=== PATIENT | male | born 1955 | race American Indian/Alaskan Native ===

== ENCOUNTER 2016-07-28 18:31 | Inpatient (IN) | payer MEDICARE, OTHER ==
[2016-07-28] MEDS ORDERED: Clindamycin 300 MG in Sodium Chloride 0.9% 50 ML IVPB STA (20:25)
[2016-07-28 20:54] LABS: BASO # 0.1 K/uL (0.0-0.2); BASO % 0.8 % (0.0-2.0); EOS # 0.2 K/uL (0.0-0.7); EOS % 2.5 % (0.0-4.0); HEMATOCRIT 40.5 % (35.0-51.0); LYMPH # 2.2 K/uL (1.0-4.3); LYMPH % 34.8 % (20.0-40.0); MEAN CELL VOLUME 98.9 fL (80.0-94.0); MEAN CORPUSCULAR HEMOGLOBIN 33.9 pg (27.0-31.0); MEAN CORPUSCULAR HGB CONC 34.3 g/dL (33.0-37.0); MEAN PLATELET VOLUME 9.4 fL (7.2-11.7); MONO # 0.8 K/uL (0.0-0.8); RED CELL DISTRIBUTION WIDTH 12.8 % (11.5-14.5); WHITE BLOOD COUNT 6.3 K/uL (4.8-10.8)
[2016-07-28 21:05] LABS: CHLORIDE 107 mmol/L (98-107); SODIUM 138 mmol/L (132-148)
[2016-07-28 21:06] LABS: POTASSIUM 4.9 mmol/L (3.6-5.2)
[2016-07-28 21:07] LABS: GFR AFRICAN-AMERICAN > 60
[2016-07-28 21:08] LABS: ALB/GLOB RATIO 0.9 (1.0-2.1); ALKALINE PHOSPHATASE 94 U/L (38-126); ALT/SGPT 112 U/L (21-72); AST/SGOT 95 U/L (17-59); BILIRUBIN,TOTAL 0.8 mg/dL (0.2-1.3); BLOOD UREA NITROGEN 28 mg/dL (9-20); CARBON DIOXIDE 21 mmol/L (22-30); GLUCOSE,RANDOM 192 mg/dL (75-110); TOTAL PROTEIN 8.2 g/dL (6.3-8.3)
[2016-07-28 21:09] LABS: CALCIUM 9.2 mg/dl (8.6-10.4)
--- NOTE | 2016-07-28 21:35 | C.PDOC ---
History Of Present Illness Patient is a 60 year old male who was sent to ER by PCP Dr. Pereira for admission for osteomyelitis of the right 5th toe. Patient had a bone scan done on 07/19 that showed osteomyelitis of the right 5th toe. Denies fever, foot pain or any other physical complaints at this time. Time Seen by Provider: 07/28/16 19:58 Chief Complaint (Nursing): Abnormal Skin Integrity History Per: Patient History/Exam Limitations: no limitations Current Symptoms Are (Timing): Still Present Location Of Injury: Right: Foot (Osteomyelitis of 5th toe) Past Medical History Reviewed: Historical Data, Nursing Documentation, Vital Signs Vital Signs: Last Vital Signs Temp 97.7 F 07/29/16 01:15 Pulse 80 07/29/16 01:15 Resp 20 07/29/16 01:15 BP 158/84 H 07/29/16 01:15 Pulse Ox 98 07/29/16 01:15 - Medical History PMH: HTN Surgical History: No Surg Hx Family History: States: Unknown Family Hx - Social History Hx Alcohol Use: Yes Hx Substance Use: No - Immunization History Hx Tetanus Toxoid Vaccination: No Hx Influenza Vaccination: No Hx Pneumococcal Vaccination: No Review Of Systems Constitutional: Negative for: Fever, Chills Gastrointestinal: Negative for: Nausea, Vomiting, Abdominal Pain, Diarrhea Musculoskeletal: Positive for: Other (Right 5th toe osteomyelitis). Negative for: Foot Pain Neurological: Negative for: Weakness, Numbness Physical Exam - Physical Exam Appears: Well, Non-toxic Skin: Normal Color, Warm, Dry Head: Atraumatic, Normacephalic Oral Mucosa: Moist Extremity: Other (Open chronic ulcer on the dorsal aspect of right foot 5th toe. Old healing lesion on left toe) Pulses: Left Dorsalis Pedis: Normal, Right Dorsalis Pedis: Normal Neurological/Psych: Oriented x3, Normal Speech, Normal Cognition ED Course And Treatment - Laboratory Results Result Diagrams: 07/28/16 21:01 07/28/16 19:59 O2 Sat by Pulse Oximetry: 98 (Room air) Pulse Ox Interpretation: Normal Progress Note: Vancomycin IVPB and cleocin IV administered. Consulted with Dr. Pereira, will be admitted under Dr. Pereira. Disposition Counseled Patient/Family Regarding: Diagnosis, Need For Followup - Disposition Disposition: HOSPITALIZED Disposition Time: 03:33 Condition: STABLE - Clinical Impression Clinical Impression: Toe osteomyelitis, right - Scribe Statement The provider has reviewed the documentation as recorded by the Scribe Blaine Moore All medical record entries made by the Scribe were at my direction and personally dictated by me. I have reviewed the chart and agree that the record accurately reflects my personal performance of the history, physical exam, medical decision making, and the department course for this patient. I have also personally directed, reviewed, and agree with the discharge instructions and disposition.
[2016-07-29] MEDS ORDERED: Pneumococcal 23-Valent Vaccine IM ONE (01:29)
[2016-07-29] MEDS: Clindamycin 300 MG in Sodium Chloride 0.9% 50 ML IVPB SCH ×2 (05:09→12:06)
[2016-07-29] MEDS: (Novolog) Insulin Aspart, Recombinant 100 u/ml 10 ml vial SC SCH ×4 (09:01→22:04)
[2016-07-29] MEDS: (Novolog Mix 70/30) Insulin Aspart/Insulin Aspar 100 units/ml SC SCH ×3 (09:01→18:29)
[2016-07-29 09:08] LABS: CHLORIDE 103 mmol/L (98-107)
[2016-07-29 09:09] LABS: SODIUM 140 mmol/L (132-148)
[2016-07-29 09:10] LABS: POTASSIUM 4.4 mmol/L (3.6-5.2)
[2016-07-29 09:11] LABS: CHOLESTEROL 175 mg/dL (0-199)
[2016-07-29 09:12] LABS: ALB/GLOB RATIO 0.9 (1.0-2.1); ALKALINE PHOSPHATASE 96 U/L (38-126); ALT/SGPT 95 U/L (21-72); AST/SGOT 91 U/L (17-59); BILIRUBIN,TOTAL 0.8 mg/dL (0.2-1.3); BLOOD UREA NITROGEN 28 mg/dL (9-20); CARBON DIOXIDE 26 mmol/L (22-30); GFR AFRICAN-AMERICAN > 60; GLUCOSE,RANDOM 221 mg/dL (75-110); TOTAL PROTEIN 7.6 g/dL (6.3-8.3)
[2016-07-29 09:31] LABS: T4 11.9 ug/dL (5.5-11.0)
[2016-07-29 12:16] LABS: BASO % 0.9 % (0.0-2.0); EOS # 0.2 K/uL (0.0-0.7); EOS % 3.3 % (0.0-4.0); HEMATOCRIT 38.8 % (35.0-51.0); LYMPH # 1.4 K/uL (1.0-4.3); LYMPH % 24.9 % (20.0-40.0); MEAN CELL VOLUME 99.9 fL (80.0-94.0); MEAN CORPUSCULAR HEMOGLOBIN 33.6 pg (27.0-31.0); MEAN CORPUSCULAR HGB CONC 33.7 g/dL (33.0-37.0); MEAN PLATELET VOLUME 9.8 fL (7.2-11.7); MONO # 0.7 K/uL (0.0-0.8); MONO % 12.2 % (0.0-10.0); RED CELL DISTRIBUTION WIDTH 12.9 % (11.5-14.5); WHITE BLOOD COUNT 5.4 K/uL (4.8-10.8)
--- NOTE | 2016-07-29 12:49 | CP.PCM.CON ---
History of Present Illness - History of Present Illness History of Present Illness: 60 y/o male with pmhx of HTN seen at bedside with attending Dr. Garcia for right foot 5th toe osteomyelitis and left hallux wound. Patient states that he was sent by his PCP Dr. Pereira. Patient denies any pain to his feet. Patient appears in NAD and AAOx3. patient dressing remains c/d/i with minimal strikethrough on bandage. patient denies n/f/v/d/sob at this time. Review of Systems - Constitutional Constitutional: As Per HPI Past Patient History - Infectious Disease Hx of Infectious Diseases: None - Past Medical History & Family History Past Medical History?: Yes - Past Social History Smoking Status: Former Smoker - CARDIAC Hx Hypertension: Yes - ENDOCRINE/METABOLIC Hx Diabetes Mellitus Type 2: Yes - HEMATOLOGICAL/ONCOLOGICAL Hx Hepatitis C: Yes - MUSCULOSKELETAL/RHEUMATOLOGICAL Hx Falls: Yes - PSYCHIATRIC Hx Substance Use: No - SURGICAL HISTORY Hx Surgeries: Yes Other/Comment: lymph nodes removed from inguinal area. amputation to right toes done - ANESTHESIA Hx Anesthesia: Yes Hx Anesthesia Reactions: No Meds Allergies/Adverse Reactions: Allergies Allergy/AdvReac Type Severity Reaction Status Date / Time No Known Allergies Allergy Verified 07/28/16 18:56 - Medications Medications: Current Medications Amlodipine Besylate (Norvasc) 10 mg PO DAILY [facility] Last Admin: 07/29/16 09:06 Dose: 10 mg Aspirin (Aspirin Chewable) 81 mg PO DAILY [facility] Last Admin: 07/29/16 09:06 Dose: 81 mg Famotidine (Pepcid) 20 mg PO BID [facility] Last Admin: 07/29/16 09:06 Dose: 20 mg Furosemide (Lasix) 40 mg PO BID [facility] Last Admin: 07/29/16 09:07 Dose: 40 mg Heparin Sodium (Porcine) (Heparin) 5,000 units SC Q12 [facility] Last Admin: 07/29/16 09:06 Dose: 5,000 units Vancomycin HCl (Vancomycin 1gm In Normal Saline Addvantage) 250 mls @ 166.667 mls/hr IV STAT [facility] Last Admin: 07/28/16 21:32 Dose: 166.667 mls/hr Clindamycin Phosphate 300 mg/ (Sodium Chloride) 52 mls @ 100 mls/hr IVPB Q8H [facility] Last Admin: 07/29/16 12:06 Dose: 100 mls/hr Vancomycin HCl 1 gm/ Sodium (Chloride) 250 mls @ 166.7 mls/hr IVPB Q24H [facility] Influenza Virus Vaccine (Afluria) 45 mcg IM .ONCE ONE Stop: 07/31/16 14:01 Insulin Aspart (Novolog Mix 70/30 (70/30 Units/Ml)) 65 units SC ACBD [facility] Last Admin: 07/29/16 09:01 Dose: 65 units Insulin Aspart (Novolog) 0 unit SC ACHS [facility] PRN Reason: Protocol Last Admin: 07/29/16 12:04 Dose: 2 unit Metformin HCl (Glucophage) 500 mg PO BID [facility] Last Admin: 07/29/16 09:06 Dose: 500 mg Pneumococcal Polyvalent Vaccine (Pneumovax 23 Vaccine) 0.5 ml IM .ONCE ONE Stop: 07/31/16 14:01 Physical Exam - Constitutional Appears: Well, Non-toxic, No Acute Distress - Extremities Exam Additional comments: vasc: nonpalpable pedal pulses b/l, TG wnl, CFT < 3 sec to all digits, localized edema nad erythema to right 5th digit and left hallux neuro: grossly diminished derm: localized edema, localized erythema to right 5th digit and left hallux, open ulceration on right 5th digit measuring 1.5cm x 1 cm 0.1cm with fibrous base and macerated border, left hallux pre-ulcerative superficial lesion, no purulence, no malodor, no drainage, no fluctuance, no ascending cellulitis ortho: no pain on palpation of feet b/l - Neurological Exam Neurological exam: Alert, Oriented x3 - Psychiatric Exam Psychiatric exam: Normal Affect, Normal Mood Results - Vital Signs Recent Vital Signs: Last Vital Signs Temp 97.9 F 07/29/16 07:30 Pulse 78 07/29/16 07:30 Resp 20 07/29/16 07:30 BP 160/80 H 07/29/16 09:07 Pulse Ox 97 07/29/16 07:30 - Labs Result Diagrams: 07/29/16 12:19 07/29/16 08:48 Labs: Laboratory Results - last 24 hr 07/28/16 07/29/16 07/29/16 21:54 06:45 08:48 WBC RBC Hgb Hct MCV MCH MCHC RDW Plt Count MPV Neut % (Auto) Lymph % (Auto) [place] % (Auto) Eos % (Auto) Baso % (Auto) Neut # Lymph # [place] # Eos # Baso # APTT Sodium 140 Potassium 4.4 Chloride 103 Carbon Dioxide 26 Anion Gap 16 BUN 28 H Creatinine 1.1 Est GFR ( Amer) > 60 Est GFR (Non-Af Amer) > 60 POC Glucose (mg/dL) 165 H 189 H Random Glucose 221 H Calcium 9.0 Total Bilirubin 0.8 AST 91 H ALT 95 H Alkaline Phosphatase 96 Total Protein 7.6 Albumin 3.6 Globulin 4.0 H Albumin/Globulin Ratio 0.9 L Triglycerides 251 H Cholesterol 175 LDL Cholesterol Direct 115 HDL Cholesterol 42 Thyroxine (T4) 11.9 H Total T3 2.22 TSH 3rd Generation 2.30 07/29/16 07/29/16 07/29/16 08:48 11:17 12:19 WBC 5.4 RBC 3.89 L Hgb 13.1 Hct 38.8 MCV 99.9 H MCH 33.6 H MCHC 33.7 RDW 12.9 Plt Count 79 L MPV 9.8 Neut % (Auto) 58.7 Lymph % (Auto) 24.9 [place] % (Auto) 12.2 H Eos % (Auto) 3.3 Baso % (Auto) 0.9 Neut # 3.2 Lymph # 1.4 [place] # 0.7 Eos # 0.2 Baso # 0.0 APTT 34 Sodium Potassium Chloride Carbon Dioxide Anion Gap BUN Creatinine Est GFR ( Amer) Est GFR (Non-Af Amer) POC Glucose (mg/dL) 209 H Random Glucose Calcium Total Bilirubin AST ALT Alkaline Phosphatase Total Protein Albumin Globulin Albumin/Globulin Ratio Triglycerides Cholesterol LDL Cholesterol Direct HDL Cholesterol Thyroxine (T4) Total T3 TSH 3rd Generation Assessment & Plan - Assessment and Plan (Free Text) Assessment: 60 y/o male with pmhx of HTN seen at bedside for right foot 5th digit osteomyelitis with left hallux wound Plan: patient evaluated and seen at bedside with attending Dr. Garcia labs and vitals reviewed; afebrile, WBC 5.4 cont. IV abx applied DSD to both feet b/l wound cx: preliminary- no growth after 24 hours bone scan shows positive acute osseous process of right 5th digit Rx X rays of foot b/l Vascular consult placed- Dr. Thompson podiatry will continue to follow while patient remains in house
--- NOTE | 2016-07-29 13:12 | CP.PCM.CON ---
History of Present Illness - History of Present Illness History of Present Illness: INFECTIOUS DISEASE CONSULT; HPI; 60-year-old male with history of hypertension,DM-2,HLD who was sent to the ER on 07/28/[address] AMATO FOR ADMISSION FOR OSTEOMYELITIS OF THE RIGHT FIFTH TOE. PATIENT HAD A BONE SCAN DONE ON 07/19/16 WHICH SHOWED OSTEOMYELITIS OF THE RIGHT FIFTH TOE. PATIENT DENIES ANY FOOT PAIN OR ANY PHYSICAL COMPLAINTS AT THIS TIME. PATIENT DENIES ANY FEVER OR CHILLS. PATIENT WAS EMPIRICALLY STARTED ON iv VANCOMYCIN 1 G ONCE A DAY AND iv cLEOCIN 300 MG EVERY 8 HOURLY. INFECTIOUS DISEASE CONSULTATION REQUESTED BY PMD FOR RIGHT FOOT FIFTH TOE OSTEOMYELITIS. ALLERGIES; NKA. PMH: HTN,DM,HLD Surgical History: No Surg Hx Family History: States: Unknown Family Hx - Social History Hx Alcohol Use: Yes Hx Substance Use: No SMOKING -VE - Immunization History Hx Tetanus Toxoid Vaccination: No Hx Influenza Vaccination: No Hx Pneumococcal Vaccination: No Review of Systems - Constitutional Constitutional: absent: Chills, Fever - EENT Eyes: absent: Change in Vision Nose/Mouth/Throat: absent: Mouth Lesions - Cardiovascular Cardiovascular: absent: Chest Pain, Dyspnea - Respiratory Respiratory: absent: Cough - Gastrointestinal Gastrointestinal: absent: Abdominal Pain, Diarrhea - Genitourinary Genitourinary: absent: Dysuria, Urinary Hesitance - Neurological Neurological: Sensory Deficit. absent: Headaches, Tingling, Weakness - Hematologic/Lymphatic Hematologic: As Per HPI Past Patient History - Infectious Disease Hx of Infectious Diseases: None - Past Medical History & Family History Past Medical History?: Yes - Past Social History Smoking Status: Former Smoker - CARDIAC Hx Hypertension: Yes - ENDOCRINE/METABOLIC Hx Diabetes Mellitus Type 2: Yes - HEMATOLOGICAL/ONCOLOGICAL Hx Hepatitis C: Yes - MUSCULOSKELETAL/RHEUMATOLOGICAL Hx Falls: Yes - PSYCHIATRIC Hx Substance Use: No - SURGICAL HISTORY Hx Surgeries: Yes Other/Comment: lymph nodes removed from inguinal area. amputation to right toes done - ANESTHESIA Hx Anesthesia: Yes Hx Anesthesia Reactions: No Meds Allergies/Adverse Reactions: Allergies Allergy/AdvReac Type Severity Reaction Status Date / Time No Known Allergies Allergy Verified 07/28/16 18:56 - Medications Medications: Current Medications Amlodipine Besylate (Norvasc) 10 mg PO DAILY [facility] Last Admin: 07/29/16 09:06 Dose: 10 mg Aspirin (Aspirin Chewable) 81 mg PO DAILY [facility] Last Admin: 07/29/16 09:06 Dose: 81 mg Famotidine (Pepcid) 20 mg PO BID [facility] Last Admin: 07/29/16 09:06 Dose: 20 mg Furosemide (Lasix) 40 mg PO BID [facility] Last Admin: 07/29/16 09:07 Dose: 40 mg Heparin Sodium (Porcine) (Heparin) 5,000 units SC Q12 [facility] Last Admin: 07/29/16 09:06 Dose: 5,000 units Vancomycin HCl (Vancomycin 1gm In Normal Saline Addvantage) 250 mls @ 166.667 mls/hr IV STAT [facility] Last Admin: 07/28/16 21:32 Dose: 166.667 mls/hr Clindamycin Phosphate 300 mg/ (Sodium Chloride) 52 mls @ 100 mls/hr IVPB Q8H [facility] Last Admin: 07/29/16 12:06 Dose: 100 mls/hr Vancomycin HCl 1 gm/ Sodium (Chloride) 250 mls @ 166.7 mls/hr IVPB Q24H [facility] Influenza Virus Vaccine (Afluria) 45 mcg IM .ONCE ONE Stop: 07/31/16 14:01 Insulin Aspart (Novolog Mix 70/30 (70/30 Units/Ml)) 65 units SC ACBD [facility] Last Admin: 07/29/16 09:01 Dose: 65 units Insulin Aspart (Novolog) 0 unit SC ACHS [facility] PRN Reason: Protocol Last Admin: 07/29/16 12:04 Dose: 2 unit Metformin HCl (Glucophage) 500 mg PO BID [facility] Last Admin: 07/29/16 09:06 Dose: 500 mg Pneumococcal Polyvalent Vaccine (Pneumovax 23 Vaccine) 0.5 ml IM .ONCE ONE Stop: 07/31/16 14:01 Physical Exam - Head Exam Head Exam: NORMAL INSPECTION - Eye Exam Eye Exam: EOMI, PERRL - ENT Exam ENT Exam: Normal Oropharynx - Respiratory Exam Respiratory Exam: Clear to Auscultation Bilateral - Cardiovascular Exam Cardiovascular Exam: REGULAR RHYTHM, +S1, +S2 - GI/Abdominal Exam GI & Abdominal Exam: Normal Bowel Sounds, Soft. absent: Organomegaly - Extremities Exam Extremities exam: Positive for: pedal pulses present (PULSES WEAK.). Negative for: calf tenderness, pedal edema Additional comments: R 5th toe ulceration, edema, and erythema with skin masceration. L 1st toe with mild erythema - Neurological Exam Neurological exam: Alert, CN II-XII Intact, Oriented x3, Reflexes Normal - Psychiatric Exam Psychiatric exam: Normal Mood - Skin Skin Exam: Normal Color, Warm Results - Vital Signs Recent Vital Signs: Last Vital Signs Temp 97.9 F 07/29/16 07:30 Pulse 78 07/29/16 07:30 Resp 20 07/29/16 07:30 BP 160/80 H 07/29/16 09:07 Pulse Ox 97 07/29/16 07:30 - Labs Result Diagrams: 07/29/16 12:19 07/29/16 08:48 Labs: Laboratory Results - last 24 hr 07/28/16 07/29/16 07/29/16 21:54 06:45 08:48 WBC RBC Hgb Hct MCV MCH MCHC RDW Plt Count MPV Neut % (Auto) Lymph % (Auto) [place] % (Auto) Eos % (Auto) Baso % (Auto) Neut # Lymph # [place] # Eos # Baso # APTT Sodium 140 Potassium 4.4 Chloride 103 Carbon Dioxide 26 Anion Gap 16 BUN 28 H Creatinine 1.1 Est GFR ( Amer) > 60 Est GFR (Non-Af Amer) > 60 POC Glucose (mg/dL) 165 H 189 H Random Glucose 221 H Calcium 9.0 Total Bilirubin 0.8 AST 91 H ALT 95 H Alkaline Phosphatase 96 Total Protein 7.6 Albumin 3.6 Globulin 4.0 H Albumin/Globulin Ratio 0.9 L Triglycerides 251 H Cholesterol 175 LDL Cholesterol Direct 115 HDL Cholesterol 42 Thyroxine (T4) 11.9 H Total T3 2.22 TSH 3rd Generation 2.30 07/29/16 07/29/16 07/29/16 08:48 11:17 12:19 WBC 5.4 RBC 3.89 L Hgb 13.1 Hct 38.8 MCV 99.9 H MCH 33.6 H MCHC 33.7 RDW 12.9 Plt Count 79 L MPV 9.8 Neut % (Auto) 58.7 Lymph % (Auto) 24.9 [place] % (Auto) 12.2 H Eos % (Auto) 3.3 Baso % (Auto) 0.9 Neut # 3.2 Lymph # 1.4 [place] # 0.7 Eos # 0.2 Baso # 0.0 APTT 34 Sodium Potassium Chloride Carbon Dioxide Anion Gap BUN Creatinine Est GFR ( Amer) Est GFR (Non-Af Amer) POC Glucose (mg/dL) 209 H Random Glucose Calcium Total Bilirubin AST ALT Alkaline Phosphatase Total Protein Albumin Globulin Albumin/Globulin Ratio Triglycerides Cholesterol LDL Cholesterol Direct HDL Cholesterol Thyroxine (T4) Total T3 TSH 3rd Generation Assessment & Plan (1) Toe osteomyelitis, right Assessment and Plan: ESR,CRP WOUND CULTURE. START iv ZOSYN 3.375 EVERY 8 HOURLY 07/29 cONTINUE VANCOMYCIN, INCREASED DOSE TO 1 G EVERY 12 HOURLY.07/28/16 vANCO TROUGH LEVEL PRIOR TO FOURTH DOSE ON SUNDAY AND NOTIFY. kEEP VANCO LEVELS BETWEEN 10 AND 20. DC iv CLINDAMYCIN. PODIATRY ON BOARD. LOCAL WOUND CARE. FOR VASCULAR W/U Status: Acute (2) Hypertension Status: Chronic (3) Thrombocytopenia Assessment and Plan: FOLLOW-UP REPEAT cbc WITH DIFFERENTIAL IN A.M. etiology of thrombocytopenia not clear- probable sepsis versus liver disease versus immune Status: Acute
[2016-07-29] MEDS: Vancomycin 1 gm/NS 200 ml 1 GM/200 ML BAG IVPB SCH (13:59)
--- NOTE | 2016-07-29 14:21 | RAD ---
PROCEDURE: Bilateral Feet Radiographs. HISTORY: r/o OM left hallux COMPARISON: Three-phase bone scan performed 07/19/16 FINDINGS: BONES: Right Foot: No acute displaced fracture.Prominent sclerotic region involving the talus. Left Foot: No acute displaced fracture. Deformity of the ankle joint with hardware present. Resection of the distal 5th metatarsal. JOINTS: Right Foot: No dislocation. Left Foot: No dislocation. SOFT TISSUES: Right Foot: Soft tissue swelling or cellulitis, laterally. Dense vascular calcifications. Left Foot: Soft tissue swelling/cellulitis most prominent laterally. Dense vascular calcifications. OTHER FINDINGS: None. IMPRESSION: Prominent sclerotic region involving the right talus. Extensive degenerative changes bilaterally. Postoperative changes of the left foot and ankle. Bilateral soft tissue swelling/cellulitis most prominent laterally. Please note that MRI without and with IV contrast is most sensitive in detection of acute osteomyelitis.
[2016-07-29] MEDS: hydrALAZINE 12.5 mg Tab PO SCH ×2 (14:54→22:48)
[2016-07-29] MEDS: Piperacillin/Tazobact 3.375 GM in Sodium Chloride 100 ML IVPB SCH (15:31)
--- NOTE | 2016-07-29 18:43 | CP.PCM.CON ---
<Austin Fischer - Last Filed: 07/29/16 18:26> History of Present Illness - History of Present Illness History of Present Illness: Vascular Surgery Consult Re: R 5th digit wound, L hallux wound, assess vascular status of bilateral lower extremities HPI: 60M sent to ED by Dr. Pereira for osteomyelitis of the right 5th toe found on a bone scan from 07/19/16. Pt has poor sensation in his feet 2/2 diabetic neuropathy. Pt currently without complaint. Denies F/C, N/V/D, foot pain. We were consulted for evaluation of blood flow to the b/l LE by podiatry. L hallux wound also noted. PMH: DM, HTN, HLD PSH: L ankle/L 5th toe SH: Former tobacco smoker (quit 10+ years ago), Rare EtOH, no drug use All: NKDA Meds: See MAR Review of Systems - Review of Systems All systems: reviewed and no additional remarkable complaints except (as per HPI ) Past Patient History - Infectious Disease Hx of Infectious Diseases: None - Past Medical History & Family History Past Medical History?: Yes - Past Social History Smoking Status: Former Smoker - CARDIAC Hx Hypertension: Yes - ENDOCRINE/METABOLIC Hx Diabetes Mellitus Type 2: Yes - HEMATOLOGICAL/ONCOLOGICAL Hx Hepatitis C: Yes - MUSCULOSKELETAL/RHEUMATOLOGICAL Hx Falls: Yes - PSYCHIATRIC Hx Substance Use: No - SURGICAL HISTORY Hx Surgeries: Yes Other/Comment: lymph nodes removed from inguinal area. amputation to right toes done - ANESTHESIA Hx Anesthesia: Yes Hx Anesthesia Reactions: No Meds Allergies/Adverse Reactions: Allergies Allergy/AdvReac Type Severity Reaction Status Date / Time No Known Allergies Allergy Verified 07/28/16 18:56 - Medications Medications: Current Medications Amlodipine Besylate (Norvasc) 10 mg PO DAILY [facility] Last Admin: 07/29/16 09:06 Dose: 10 mg Aspirin (Aspirin Chewable) 81 mg PO DAILY [facility] Last Admin: 07/29/16 09:06 Dose: 81 mg Famotidine (Pepcid) 20 mg PO BID [facility] Last Admin: 07/29/16 09:06 Dose: 20 mg Furosemide (Lasix) 40 mg PO BID [facility] Last Admin: 07/29/16 09:07 Dose: 40 mg Heparin Sodium (Porcine) (Heparin) 5,000 units SC Q12 [facility] Last Admin: 07/29/16 09:06 Dose: 5,000 units Hydralazine HCl (Apresoline) 12.5 mg PO Q8 [facility] Last Admin: 07/29/16 14:54 Dose: 12.5 mg Piperacillin Sod/Tazobactam (Sod 3.375 gm/ Sodium Chloride) 100 mls @ 200 mls/ hr IVPB Q8H [facility] Last Admin: 07/29/16 15:31 Dose: 200 mls/hr Vancomycin/Sodium Chloride (Vancocin) 1 gm in 200 mls @ 133.333 mls/hr IVPB Q12H [facility] Stop: 08/03/16 14:01 Last Admin: 07/29/16 13:59 Dose: 133.333 mls/hr Influenza Virus Vaccine (Afluria) 45 mcg IM .ONCE ONE Stop: 07/31/16 14:01 Insulin Aspart (Novolog Mix 70/30 (70/30 Units/Ml)) 65 units SC ACBD [facility] Last Admin: 07/29/16 09:01 Dose: 65 units Insulin Aspart (Novolog) 0 unit SC ACHS [facility] PRN Reason: Protocol Last Admin: 07/29/16 12:04 Dose: 2 unit Losartan Potassium (Cozaar) 50 mg PO DAILY [facility] Last Admin: 07/29/16 14:54 Dose: 50 mg Metformin HCl (Glucophage) 500 mg PO BID [facility] Last Admin: 07/29/16 09:06 Dose: 500 mg Pneumococcal Polyvalent Vaccine (Pneumovax 23 Vaccine) 0.5 ml IM .ONCE ONE Stop: 07/31/16 14:01 Physical Exam - Constitutional Appears: Non-toxic, No Acute Distress - Head Exam Head Exam: ATRAUMATIC, NORMOCEPHALIC - Eye Exam Eye Exam: EOMI. absent: Scleral icterus - ENT Exam ENT Exam: Mucous Membranes Moist Additional comments: trachea midline - Respiratory Exam Respiratory Exam: NORMAL BREATHING PATTERN. absent: Respiratory Distress - Cardiovascular Exam Cardiovascular Exam: RRR, +S1, +S2 - GI/Abdominal Exam GI & Abdominal Exam: Soft. absent: Distended, Tenderness - Rectal Exam Rectal Exam: Deferred - Extremities Exam Extremities exam: Positive for: pedal edema (trace b/l). Negative for: calf tenderness, pedal pulses present (b/l nonpalpable PT and DP) Additional comments: difficult to palpate popliteal pulse b/l R 5th toe ulceration, edema, and erythema L 1st toe with mild erythema - Neurological Exam Neurological exam: Alert, Oriented x3 Additional comments: decreased sensation in b/l LE - Psychiatric Exam Psychiatric exam: Normal Affect, Normal Mood - Skin Skin Exam: Dry, Warm Results - Vital Signs Recent Vital Signs: Last Vital Signs Temp 97.6 F 07/29/16 15:43 Pulse 76 07/29/16 15:43 Resp 20 07/29/16 15:43 BP 169/90 H 07/29/16 15:43 Pulse Ox 98 07/29/16 15:43 - Labs Result Diagrams: 07/29/16 12:19 07/29/16 08:48 Labs: Laboratory Results - last 24 hr 07/28/16 07/29/16 07/29/16 21:54 06:45 08:48 WBC RBC Hgb Hct MCV MCH MCHC RDW Plt Count MPV Neut % (Auto) Lymph % (Auto) Ballard % (Auto) Eos % (Auto) Baso % (Auto) Neut # Lymph # Ballard # Eos # Baso # APTT Sodium 140 Potassium 4.4 Chloride 103 Carbon Dioxide 26 Anion Gap 16 BUN 28 H Creatinine 1.1 Est GFR ( Amer) > 60 Est GFR (Non-Af Amer) > 60 POC Glucose (mg/dL) 165 H 189 H Random Glucose 221 H Calcium 9.0 Total Bilirubin 0.8 AST 91 H ALT 95 H Alkaline Phosphatase 96 Total Protein 7.6 Albumin 3.6 Globulin 4.0 H Albumin/Globulin Ratio 0.9 L Triglycerides 251 H Cholesterol 175 LDL Cholesterol Direct 115 HDL Cholesterol 42 Thyroxine (T4) 11.9 H Total T3 2.22 TSH 3rd Generation 2.30 07/29/16 07/29/16 07/29/16 08:48 11:17 12:19 WBC 5.4 RBC 3.89 L Hgb 13.1 Hct 38.8 MCV 99.9 H MCH 33.6 H MCHC 33.7 RDW 12.9 Plt Count 79 L MPV 9.8 Neut % (Auto) 58.7 Lymph % (Auto) 24.9 Ballard % (Auto) 12.2 H Eos % (Auto) 3.3 Baso % (Auto) 0.9 Neut # 3.2 Lymph # 1.4 Ballard # 0.7 Eos # 0.2 Baso # 0.0 APTT 34 Sodium Potassium Chloride Carbon Dioxide Anion Gap BUN Creatinine Est GFR ( Amer) Est GFR (Non-Af Amer) POC Glucose (mg/dL) 209 H Random Glucose Calcium Total Bilirubin AST ALT Alkaline Phosphatase Total Protein Albumin Globulin Albumin/Globulin Ratio Triglycerides Cholesterol LDL Cholesterol Direct HDL Cholesterol Thyroxine (T4) Total T3 TSH 3rd Generation 07/29/16 15:31 WBC RBC Hgb Hct MCV MCH MCHC RDW Plt Count MPV Neut % (Auto) Lymph % (Auto) Ballard % (Auto) Eos % (Auto) Baso % (Auto) Neut # Lymph # Ballard # Eos # Baso # APTT Sodium Potassium Chloride Carbon Dioxide Anion Gap BUN Creatinine Est GFR ( Amer) Est GFR (Non-Af Amer) POC Glucose (mg/dL) 168 H Random Glucose Calcium Total Bilirubin AST ALT Alkaline Phosphatase Total Protein Albumin Globulin Albumin/Globulin Ratio Triglycerides Cholesterol LDL Cholesterol Direct HDL Cholesterol Thyroxine (T4) Total T3 TSH 3rd Generation - Imaging and Cardiology B/L LE x-ray Status: Image reviewed by me Assessment & Plan - Assessment and Plan (Free Text) Assessment: 60M with R foot 5th toe osteomyelitis and left hallux wound with PAD Plan: CTA abd/pelvis with B/L LE runoff IV ABX per ID IVF Dr. Bernard to see. Seen with Dr. Jurado, covering for Dr. Bernard D/W Dr. Adrien Fischer PGY3 <Kenneth Jurado - Last Filed: 08/02/16 20:35> Meds - Medications Medications: Current Medications Amlodipine Besylate (Norvasc) 10 mg PO DAILY [facility] Last Admin: 08/02/16 11:55 Dose: Not Given Aspirin (Aspirin Chewable) 81 mg PO DAILY [facility] Last Admin: 08/02/16 11:56 Dose: Not Given Atenolol (Tenormin) 12.5 mg PO DAILY [facility] Last Admin: 08/02/16 11:54 Dose: 12.5 mg Clopidogrel Bisulfate (Plavix) 75 mg PO DAILY [facility] Famotidine (Pepcid) 20 mg PO BID [facility] Last Admin: 08/02/16 17:20 Dose: 20 mg Furosemide (Lasix) 40 mg PO BID [facility] Last Admin: 08/02/16 17:20 Dose: 40 mg Heparin Sodium (Porcine) (Heparin) 5,000 units SC Q12 [facility] Last Admin: 08/01/16 22:26 Dose: 5,000 units Hydralazine HCl (Apresoline) 25 mg PO Q8 [facility] Last Admin: 08/02/16 13:21 Dose: Not Given Piperacillin Sod/Tazobactam (Sod 3.375 gm/ Sodium Chloride) 100 mls @ 200 mls/ hr IVPB Q8H [facility] Last Admin: 08/02/16 14:51 Dose: Not Given Dextrose/Sodium Chloride (Dextrose 5%/0.45% Ns 1000 Ml) 1,000 mls @ 50 mls/hr IV .Q20H [facility] Stop: 08/03/16 08:14 Last Admin: 08/02/16 12:06 Dose: 50 mls/hr Dextrose/Sodium Chloride (Dextrose 5%/0.45% Ns 1000 Ml) 1,000 mls @ 100 mls/hr IV .Q10H [facility] Last Admin: 08/02/16 17:24 Dose: 100 mls/hr Insulin Detemir (Levemir) 60 unit SC HS [facility] Last Admin: 08/01/16 21:57 Dose: Not Given Insulin Human Regular (Novolin R) 20 unit SC TIDCC [facility] Insulin Human Regular (Novolin R) 0 unit SC ACHS [facility] PRN Reason: Protocol Losartan Potassium (Cozaar) 50 mg PO DAILY [facility] Last Admin: 08/02/16 11:54 Dose: 50 mg Results - Vital Signs Recent Vital Signs: Last Vital Signs Temp 97.3 F L 08/02/16 16:55 Pulse 66 08/02/16 16:55 Resp 18 08/02/16 16:55 BP 124/78 08/02/16 17:20 Pulse Ox 97 08/02/16 16:55 - Labs Result Diagrams: 08/01/16 06:47 08/02/16 06:59 Labs: Laboratory Results - last 24 hr 07/29/16 08/01/16 08/02/16 08:48 21:49 05:47 Sodium Potassium Chloride Carbon Dioxide Anion Gap BUN Creatinine Est GFR ( Amer) Est GFR (Non-Af Amer) POC Glucose (mg/dL) 137 H 135 H Random Glucose Calcium HCV RNA Qual (TMA) Detected H 08/02/16 08/02/16 08/02/16 06:59 11:57 16:43 Sodium 140 Potassium 4.1 Chloride 104 Carbon Dioxide 24 Anion Gap 16 BUN 22 H Creatinine 1.1 Est GFR ( Amer) > 60 Est GFR (Non-Af Amer) > 60 POC Glucose (mg/dL) 118 H 174 H Random Glucose 122 H Calcium 8.4 L HCV RNA Qual (TMA) Attending/Attestation - Attestation I have personally seen and examined this patient.: Yes I have fully participated in the care of the patient.: Yes I have reviewed all pertinent clinical information: Yes Notes (Text): 08/02/16 20:33 Pt was seen and examined at bedside on 07/29/16 Agree with above note and assessment Pt with Osteomyelitis of Right foot and PAD of Lower extremity C.w IV antibiotics CT Angiogram of LE Plan d.w pt and primary team in detail
[2016-07-29] MEDS ORDERED: Sodium Chloride 0.9% 1,000 ML IV SCH (19:00)
[2016-07-30] MEDS: Piperacillin/Tazobact 3.375 GM in Sodium Chloride 100 ML IVPB SCH ×4 (00:23→23:23)
[2016-07-30] MEDS: Vancomycin 1 gm/NS 200 ml 1 GM/200 ML BAG IVPB SCH ×2 (02:24→13:27)
[2016-07-30] MEDS: hydrALAZINE 12.5 mg Tab PO SCH ×3 (06:23→22:08)
[2016-07-30] MEDS: (Novolog Mix 70/30) Insulin Aspart/Insulin Aspar 100 units/ml SC SCH ×2 (08:05→17:48)
[2016-07-30] MEDS: (Novolog) Insulin Aspart, Recombinant 100 u/ml 10 ml vial SC SCH ×4 (08:05→22:03)
[2016-07-30] MEDS: Sodium Chloride 0.9% 1,000 ML IV SCH ×2 (08:08→22:22)
[2016-07-30] MEDS ORDERED: Iodixanol 320 mg/ml 150 ml Bottle IV ONE (08:35)
--- NOTE | 2016-07-30 09:29 | CP.PCM.PN ---
Subjective - Date & Time of Evaluation Date of Evaluation: 07/30/16 Time of Evaluation: 07:25 - Subjective Subjective: Vascular Surgery Pt S&E, NAEO. No complaints at this time. Awaiting vascular study. Objective - Vital Signs/Intake and Output Vital Signs (last 24 hours): Temp Pulse Resp BP Pulse Ox 98.0 F 91 H 20 165/74 H 95 07/30/16 08:01 07/30/16 08:01 07/30/16 08:01 07/30/16 08:01 07/30/16 08:01 Intake and Output: 07/30/16 07/30/16 06:59 18:59 Intake Total 620 Balance 620 - Medications Medications: Current Medications Amlodipine Besylate (Norvasc) 10 mg PO DAILY [facility] Last Admin: 07/29/16 09:06 Dose: 10 mg Aspirin (Aspirin Chewable) 81 mg PO DAILY [facility] Last Admin: 07/29/16 09:06 Dose: 81 mg Famotidine (Pepcid) 20 mg PO BID [facility] Last Admin: 07/29/16 18:28 Dose: 20 mg Furosemide (Lasix) 40 mg PO BID [facility] Last Admin: 07/29/16 18:28 Dose: 40 mg Heparin Sodium (Porcine) (Heparin) 5,000 units SC Q12 [facility] Last Admin: 07/29/16 22:48 Dose: 5,000 units Hydralazine HCl (Apresoline) 12.5 mg PO Q8 [facility] Last Admin: 07/30/16 06:23 Dose: 12.5 mg Piperacillin Sod/Tazobactam (Sod 3.375 gm/ Sodium Chloride) 100 mls @ 200 mls/ hr IVPB Q8H [facility] Last Admin: 07/30/16 06:33 Dose: 200 mls/hr Vancomycin/Sodium Chloride (Vancocin) 1 gm in 200 mls @ 133.333 mls/hr IVPB Q12H [facility] Stop: 08/03/16 14:01 Last Admin: 07/30/16 02:24 Dose: 133.333 mls/hr Sodium Chloride (Sodium Chloride 0.9%) 1,000 mls @ 75 mls/hr IV .[id number] [facility] Last Admin: 07/30/16 08:08 Dose: 75 mls/hr Influenza Virus Vaccine (Afluria) 45 mcg IM .ONCE ONE Stop: 07/31/16 14:01 Insulin Aspart (Novolog Mix 70/30 (70/30 Units/Ml)) 65 units SC ACBD [facility] Last Admin: 07/30/16 08:05 Dose: 65 units Insulin Aspart (Novolog) 0 unit SC ACHS [facility] PRN Reason: Protocol Last Admin: 07/30/16 08:05 Dose: 5 unit Losartan Potassium (Cozaar) 50 mg PO DAILY [facility] Last Admin: 07/29/16 14:54 Dose: 50 mg Metformin HCl (Glucophage) 500 mg PO BID [facility] Last Admin: 07/29/16 18:28 Dose: 500 mg Pneumococcal Polyvalent Vaccine (Pneumovax 23 Vaccine) 0.5 ml IM .ONCE ONE Stop: 07/31/16 14:01 - Labs Labs: 07/29/16 12:19 07/29/16 08:48 PT 11.0 SECONDS (9.7-12.2) 07/28/16 21:12 INR 1.0 07/28/16 21:12 APTT 34 SECONDS (21-34) 07/29/16 08:48 - Constitutional Appears: Non-toxic, No Acute Distress - Head Exam Head Exam: ATRAUMATIC, NORMOCEPHALIC - Respiratory Exam Respiratory Exam: NORMAL BREATHING PATTERN. absent: Respiratory Distress - GI/Abdominal Exam GI & Abdominal Exam: Soft. absent: Distended, Tenderness - Extremities Exam Extremities Exam: Pedal Edema (trace) Additional comments: dressings C/D/I - Neurological Exam Neurological Exam: Alert, Awake - Skin Skin Exam: Dry, Warm Assessment and Plan - Assessment and Plan (Free Text) Assessment: 60M with R foot 5th toe osteomyelitis and left hallux wound with PAD Plan: Follow up CTA Cont abx IVF for hydration before contrast D/W Dr. Jurado covering for Dr. Joana Fischer PGY3
[2016-07-30 11:33] LABS: HEMATOCRIT 39.4 % (35.0-51.0); MEAN CELL VOLUME 99.4 fL (80.0-94.0); MEAN CORPUSCULAR HGB CONC 34.2 g/dL (33.0-37.0); MEAN PLATELET VOLUME 9.7 fL (7.2-11.7); RED CELL DISTRIBUTION WIDTH 12.7 % (11.5-14.5); WHITE BLOOD COUNT 4.4 K/uL (4.8-10.8)
[2016-07-30 11:34] LABS: CHLORIDE 103 mmol/L (98-107)
[2016-07-30 11:35] LABS: POTASSIUM 4.1 mmol/L (3.6-5.2); SODIUM 137 mmol/L (132-148)
[2016-07-30 11:37] LABS: CARBON DIOXIDE 22 mmol/L (22-30); GFR AFRICAN-AMERICAN > 60
[2016-07-30 11:38] LABS: BLOOD UREA NITROGEN 35 mg/dL (9-20); CALCIUM 8.4 mg/dl (8.6-10.4); GLUCOSE,RANDOM 279 mg/dL (75-110)
--- NOTE | 2016-07-30 12:24 | CP.PCM.PN ---
Subjective - Date & Time of Evaluation Date of Evaluation: 07/30/16 Time of Evaluation: 12:21 - Subjective Subjective: 60 y/o male with pmhx of HTN seen at bedside for right foot 5th toe osteomyelitis and left hallux wound. Patient states that he was sent by his PCP Dr. Pereira. Patient denies any pain to his feet. Patient appears in NAD and AAOx3. patient dressing remains c/d/i with minimal strikethrough on bandage. patient denies n/f/v/d/sob at this time. Objective - Vital Signs/Intake and Output Vital Signs (last 24 hours): Temp Pulse Resp BP Pulse Ox 98.0 F 91 H 20 165/74 H 95 07/30/16 08:01 07/30/16 08:01 07/30/16 08:01 07/30/16 08:01 07/30/16 08:01 Intake and Output: 07/30/16 07/30/16 06:59 18:59 Intake Total 620 Balance 620 - Medications Medications: Current Medications Amlodipine Besylate (Norvasc) 10 mg PO DAILY [facility] Last Admin: 07/30/16 10:27 Dose: 10 mg Aspirin (Aspirin Chewable) 81 mg PO DAILY [facility] Last Admin: 07/30/16 10:27 Dose: 81 mg Famotidine (Pepcid) 20 mg PO BID [facility] Last Admin: 07/30/16 10:27 Dose: 20 mg Furosemide (Lasix) 40 mg PO BID [facility] Last Admin: 07/30/16 10:28 Dose: Not Given Heparin Sodium (Porcine) (Heparin) 5,000 units SC Q12 [facility] Last Admin: 07/30/16 10:28 Dose: 5,000 units Hydralazine HCl (Apresoline) 12.5 mg PO Q8 [facility] Last Admin: 07/30/16 06:23 Dose: 12.5 mg Piperacillin Sod/Tazobactam (Sod 3.375 gm/ Sodium Chloride) 100 mls @ 200 mls/ hr IVPB Q8H [facility] Last Admin: 07/30/16 06:33 Dose: 200 mls/hr Vancomycin/Sodium Chloride (Vancocin) 1 gm in 200 mls @ 133.333 mls/hr IVPB Q12H [facility] Stop: 08/03/16 14:01 Last Admin: 07/30/16 02:24 Dose: 133.333 mls/hr Sodium Chloride (Sodium Chloride 0.9%) 1,000 mls @ 75 mls/hr IV .[id number] [facility] Last Admin: 07/30/16 08:08 Dose: 75 mls/hr Influenza Virus Vaccine (Afluria) 45 mcg IM .ONCE ONE Stop: 07/31/16 14:01 Insulin Aspart (Novolog Mix 70/30 (70/30 Units/Ml)) 65 units SC ACBD [facility] Last Admin: 07/30/16 08:05 Dose: 65 units Insulin Aspart (Novolog) 0 unit SC ACHS [facility] PRN Reason: Protocol Last Admin: 07/30/16 12:10 Dose: 4 unit Losartan Potassium (Cozaar) 50 mg PO DAILY [facility] Last Admin: 07/30/16 10:27 Dose: 50 mg Metformin HCl (Glucophage) 500 mg PO BID [facility] Last Admin: 07/30/16 10:28 Dose: 500 mg Pneumococcal Polyvalent Vaccine (Pneumovax 23 Vaccine) 0.5 ml IM .ONCE ONE Stop: 07/31/16 14:01 - Labs Labs: 07/30/16 11:22 07/30/16 11:22 PT 11.0 SECONDS (9.7-12.2) 07/28/16 21:12 INR 1.0 07/28/16 21:12 APTT 34 SECONDS (21-34) 07/29/16 08:48 - Constitutional Appears: Well, Non-toxic, No Acute Distress - Extremities Exam Additional comments: vasc: nonpalpable pedal pulses b/l, TG wnl, CFT < 3 sec to all digits, localized edema nad erythema to right 5th digit and left hallux neuro: grossly diminished derm: localized edema, localized erythema to right 5th digit and left hallux, open ulceration on right 5th digit measuring 1.5cm x 1 cm 0.1cm with fibrous base and macerated border, left hallux pre-ulcerative superficial lesion, no purulence, no malodor, no drainage, no fluctuance, no ascending cellulitis ortho: no pain on palpation of feet b/l - Neurological Exam Neurological Exam: Alert, Awake, Oriented x3 - Psychiatric Exam Psychiatric exam: Normal Affect, Normal Mood Assessment and Plan - Assessment and Plan (Free Text) Assessment: 60 y/o male with pmhx of HTN seen at bedside for right foot 5th digit osteomyelitis with left hallux pre-ulcerative lesion Plan: patient evaluated and seen at bedside discussed in detail with attending Dr. Garcia labs and vitals reviewed; afebrile, WBC 4.4 cont. IV abx (vanco and zosyn) applied DSD to both feet b/l wound cx: preliminary- no growth after 24 hours bone scan shows positive acute osseous process of right 5th digit x rays foot b/l show extensive degenerative changes b/l, bilateral soft tissue swelling/cellulitis - recommend MRI to rule out acute OM Vascular consult appreciated- will f/u CTA podiatry will continue to follow while patient remains in house
--- NOTE | 2016-07-30 14:33 | PN ---
DATE: 07/30/2016 SUBJECTIVE: Today, the patient is alert and awake and denies any pain but still complains of some di scomfort to the lower extremity ____ . Denies any chest pain or palpitations. PHYSICAL EXAMINATION: VITAL SIGNS: The patient has a blood pressure 165/74, pulse 91, respirations 20 and temperature 98. HEAD: Normocephalic. NECK: Supple. No JVD. LUNGS: Clear. HEART: Regular rate and rhythm. ABDOMEN: Soft, obese, nontender, No palpable mass. EXTREMITIES: There is an ulcer on the left big toe at the site of the metatarsophalangeal joint, an d there is also at the right 5th toe, the dorsal aspect of the toe, which is dry. LABORATORY DATA: The WBC is 4.4, hemoglobin 13.7, hematocrit 39.4, and platelet is 81. Chemistry: ____ is the sodium, potassium is 4.1, chloride 103, bicarb is 22, BUN is 35, creatinine is 1.4, ____ , blood glucose is ranging from 309 and 378, 318. PLAN: A consult is made for ____ and vascular and also a CAT scan of the ulcer is ordered, so are go ing to continue the current medications and consider physical therapy. Dr. Layne will be consulted f or endocrinology because of diabetes. Lars Pereira MD cc: [id number] TT: 07/30/2016 14:32:33 Confirmation # [id number] Dictation # [id number]
[2016-07-31] MEDS: Vancomycin 1 gm/NS 200 ml 1 GM/200 ML BAG IVPB SCH ×3 (02:00→20:58)
[2016-07-31] MEDS: hydrALAZINE 12.5 mg Tab PO SCH ×3 (05:38→22:25)
--- NOTE | 2016-07-31 07:04 | HP ---
This is a 60-year-old male with history of diabetes, hypertension and history of Charcot joint and ch ronic ulcer of the foot. The patient came to my office. The patient was complaining of some ulcer t o the left foot, to the left big toe and also to the ____ small toes, left. The patient had an x-ray and a bone scan, which has revealed that the patient has osteomyelitis. The patient was advised to go to the hospital for admission and receive antibiotic therapy, but the patient has refused for the past 2 weeks. Last night, the patient decided to come in to the Emergency Room because of discomfort of the foot and also the wound was worsening, so the patient was therefore admitted. ALLERGIES: The patient had no known allergies. PAST MEDICAL HISTORY: History of diabetes, hypertension, peripheral arterial disease and neuropathy. The patient had surgery to the left foot for Charcot joint. SOCIAL HISTORY: The patient used to use drugs IV, but the patient has stopped for many, many years. No smoking or alcohol abuse, but however, the patient had been only drinking socially. Also, the pa tient had children, but he lives alone. FAMILY HISTORY: No inherited disease and father . REVIEW OF SYSTEM: RESPIRATORY: The patient denies any shortness of breath. CARDIOVASCULAR: The patient denied any chest pain. GASTROINTESTINAL: Complains of constipation. GENITOURINARY: Increase of urinary frequency. The patient on Lasix. NEUROLOGIC: There is numbness to his lower plantar aspect of both feet. PHYSICAL EXAMINATION: GENERAL: The patient is alert, awake, and oriented x 3. The blood pressure was lying 202/90; last blood pressure done by the nurse was 198/70 and pulse was in the range of 80. NECK: Supple, no JVD. The patient is obese. LUNGS: Clear. HEART: Regular rate and rhythm. No murmur noted. ABDOMEN: Soft, obese, no palpable mass. EXTREMITIES: There was no edema and also the patient has an ulcer left big toe and also to the ____ fifth toe. The patient had x-rays of the feet and also a bone scan was done that has shown the patient has osteo myelitis of both toes, the fifth and the first. IMPRESSION: 1. Osteomyelitis. 2. Uncontrolled hypertension. 3. Diabetes. 4. Neuropathy. 5. Unsteady gait. 6. Charcot joint. PLAN: The patient will have a consult with Dr. Garcia who is power transformer repair supervisor, Dr. Gamez who is ID and _ ___. So the patient will be put on medications including antibiotic, which is Zosyn and vancomycin. In fact, the patient also had some blood tests done and has shown that sodium 138 on admission and p otassium 4.9, chloride 107, bicarbonate 21, BUN ____, creatinine 1, and AST is 95, ALT 112, and album in 4.4. The hemoglobin and hematocrit ____. Chemistry shows sodium 140, potassium 4.4, chloride 103 , bicarbonate 26, BUN 28, creatinine 1.1. So the patient has history of hepatitis C. We are going t o order hepatitis C viral load. Lars Pereira MD cc: [id number] TT: 07/29/2016 19:01:50 fl 07/29/2016 23:27:21
--- NOTE | 2016-07-31 08:14 | CP.PCM.PN ---
Subjective - Date & Time of Evaluation Date of Evaluation: 07/31/16 Time of Evaluation: 08:12 - Subjective Subjective: Surgery: Dr. Bernard Patient states he feels well today. He denies pain to either foot. He reports dressing care by podiatry. He complains of some mild aching in the legs overall. Objective - Vital Signs/Intake and Output Vital Signs (last 24 hours): Temp Pulse Resp BP Pulse Ox 97.6 F 78 18 141/70 98 07/30/16 23:34 07/30/16 23:34 07/30/16 23:34 07/30/16 23:34 07/30/16 23:34 Intake and Output: 07/31/16 07/31/16 06:59 18:59 Intake Total 520 Balance 520 - Medications Medications: Current Medications Amlodipine Besylate (Norvasc) 10 mg PO DAILY COUNT [facility]CLUDES [facility] Last Admin: 07/30/16 10:27 Dose: 10 mg Aspirin (Aspirin Chewable) 81 mg PO DAILY [facility] Last Admin: 07/30/16 10:27 Dose: 81 mg Famotidine (Pepcid) 20 mg PO BID COUNT [facility]CLUD[facility] Last Admin: 07/30/16 17:47 Dose: 20 mg Furosemide (Lasix) 40 mg PO BID [facility] Last Admin: 07/30/16 17:50 Dose: Not Given Heparin Sodium (Porcine) (Heparin) 5,000 units SC Q12 [facility] Last Admin: 07/30/16 22:07 Dose: 5,000 units Hydralazine HCl (Apresoline) 12.5 mg PO Q8 [facility] Last Admin: 07/31/16 05:38 Dose: 12.5 mg Piperacillin Sod/Tazobactam (Sod 3.375 gm/ Sodium Chloride) 100 mls @ 200 mls/ hr IVPB Q8H COUNT [facility]CLUDES [facility] Last Admin: 07/30/16 23:23 Dose: 200 mls/hr Vancomycin/Sodium Chloride (Vancocin) 1 gm in 200 mls @ 133.333 mls/hr IVPB Q12H COUNT [facility]CLUD[facility] Last Admin: 07/31/16 02:00 Dose: 133.333 mls/hr Sodium Chloride (Sodium Chloride 0.9%) 1,000 mls @ 75 mls/hr IV .[id number] COUNT [facility]CLUDES [facility] Last Admin: 07/30/16 22:22 Dose: Not Given Insulin Aspart (Novolog Mix 70/30 (70/30 Units/Ml)) 65 units SC ACBD COUNT [facility]CLUDES [facility] Last Admin: 07/30/16 17:48 Dose: 65 units Insulin Aspart (Novolog) 0 unit SC ACHS COUNT [facility]CLUDES [facility] PRN Reason: Protocol Last Admin: 07/30/16 22:03 Dose: Not Given Losartan Potassium (Cozaar) 50 mg PO DAILY COUNT [facility] Last Admin: 07/30/16 10:27 Dose: 50 mg Metformin HCl (Glucophage) 500 mg PO BID [facility] Last Admin: 07/30/16 17:51 Dose: 500 mg Pneumococcal Polyvalent Vaccine (Pneumovax 23 Vaccine) 0.5 ml IM .ONCE ONE Stop: 07/31/16 14:01 - Labs Labs: 07/30/16 11:22 07/30/16 11:22 PT 11.0 SECONDS (9.7-12.2) 07/28/16 21:12 INR 1.0 07/28/16 21:12 APTT 34 SECONDS (21-34) 07/29/16 08:48 - Constitutional Appears: Non-toxic, No Acute Distress, Chronically Ill - Head Exam Head Exam: ATRAUMATIC, NORMOCEPHALIC - Eye Exam Eye Exam: EOMI, Normal appearance - ENT Exam ENT Exam: Mucous Membranes Moist Additional comments: NGT in place w/ dark gastric content output - Respiratory Exam Respiratory Exam: NORMAL BREATHING PATTERN. absent: Respiratory Distress - Extremities Exam Additional comments: palpable femoral pulses, faint popliteal pulse. DP pulse not appreciated. - Neurological Exam Neurological Exam: Alert, Awake - Skin Skin Exam: Dry, Normal Color, Warm Assessment and Plan - Assessment and Plan (Free Text) Assessment: 60 y/o male with nonhealing bilateral toe wounds Plan: -cont wound care per podiatry -patient for CTA today -hold nephrotoxic drugs -f/u BUN/creat -further intervention pending CTA -further recs per Dr. Joana Gates PGY 1
[2016-07-31] MEDS: (Novolog Mix 70/30) Insulin Aspart/Insulin Aspar 100 units/ml SC SCH ×2 (08:45→18:16)
[2016-07-31] MEDS: (Novolog) Insulin Aspart, Recombinant 100 u/ml 10 ml vial SC SCH ×4 (08:45→22:02)
[2016-07-31] MEDS: Piperacillin/Tazobact 3.375 GM in Sodium Chloride 100 ML IVPB SCH ×3 (08:45→22:49)
[2016-07-31] MEDS: Sodium Chloride 0.9% 1,000 ML IV SCH ×2 (09:43→18:42)
--- NOTE | 2016-07-31 10:55 | PCM.SURG1 ---
Surgeon's Initial Post Op Note - Surgeon's Notes Surgeon: Pal Espinal MD Lumber Sorter Machine: [id number] Type of Anesthesia: Local Pre-Operative Diagnosis: Foot infection. Operative Findings: US showed a patent right basilic vein. Post-Operative Diagnosis: Foot infection. Operation Performed: Single lumen placement in the right basilic vein, 42 cm. Tip in SVC. Specimen/Specimens Removed: none Estimated Blood Loss: EBL {In ML}: 2 Blood Products Given: N/A Drains Used: No Drains Post-Op Condition: Fair Date of Surgery/Procedure: 07/31/16 Time of Surgery/Procedure: 10:50
--- NOTE | 2016-07-31 11:53 | RAD ---
PROCEDURE: Date of procedure: 07/31/2016 Procedure: 1. Placement of a right arm PICC with ultrasound and fluoroscopic guidance, CPT 91499 2. PICC tip confirmation with spot radiograph and is in the superior vena cava Medications: 1 percent lidocaine Total Fluoro time: 29.7 seconds Radiation: [id number] mGym2 EBL: 2 cc HISTORY: Foot infection requiring long-term IV antibiotics TECHNIQUE: Following informed consent and procedure time-out, the patient was placed supine on the interventional table and the right arm prepped and draped in the usual sterile fashion. Ultrasound showed a patent and compressible right brachial vein. After the skin was anesthetized with lidocaine, the brachial vein was accessed with micro micropuncture technique using ultrasound guidance. A guidewire was then advanced under fluoroscopic guidance into the superior vena cava. An image documenting ultrasound guidance for vascular access was permanently saved. The length of the single-lumen 4 Turkish PICC was trimmed to 43 centimeters and advanced through a peel-away sheath. The PICC was position with tip of PICC confirm a spot radiograph the superior vena cava. The PICC was secured to the patient's skin. The PICC was flushed. A biopatch and sterile dressing was applied. IMPRESSION: Placement of a single-lumen 4 Turkish PICC trimmed to 43 centimeters via right brachial vein. The tip of the PICC is confirmed with spot radiograph and is in the superior vena cava.
--- NOTE | 2016-07-31 11:54 | US ---
PROCEDURE: Date of procedure: 07/31/2016 Procedure: Ultrasound guidance for vascular access HISTORY: Foot infection requiring long-term IV antibiotics TECHNIQUE: Following informed consent and procedure time-out, the patient placed supine on the interventional table and the left arm prepped and draped in the usual sterile fashion. Ultrasound showed a patent and compressible right brachial vein. After the skin was anesthetized with lidocaine, the brachial vein was accessed with micro micropuncture technique using ultrasound guidance. An image documenting ultrasound guidance for vascular access was permanently saved. IMPRESSION: Ultrasound guidance for vascular access for placement of PICC.
[2016-07-31 12:42] LABS: CHLORIDE 102 mmol/L (98-107)
[2016-07-31 12:43] LABS: POTASSIUM 3.8 mmol/L (3.6-5.2); SODIUM 136 mmol/L (132-148)
[2016-07-31 12:46] LABS: BLOOD UREA NITROGEN 30 mg/dL (9-20); CALCIUM 8.2 mg/dl (8.6-10.4); CARBON DIOXIDE 23 mmol/L (22-30); GFR AFRICAN-AMERICAN > 60; GLUCOSE,RANDOM 325 mg/dL (75-110)
--- NOTE | 2016-07-31 12:48 | CP.PCM.PN ---
Subjective - Date & Time of Evaluation Date of Evaluation: 07/31/16 Time of Evaluation: 12:47 - Subjective Subjective: CHIEF COMPLAINTS TODAY : afebrile Offers no new complaints s/p ZHAO SINGLE-LUMEN PICC LINE PLACEMENT 07/31/16 S/P ANGIOGRAPHY TODAY -report pending ROS. HEENT : N. Resp : No cough, wheezing ,pleuritic CP ,or hemoptysis Cardio : No anginal CP, PND, orthopnea, palpitation GI : No abd.pain, n/v ,diarrhea or GI bleeding . ENTRY REP : No headache, vertigo, focal deficit. Musculoskel : No joint swelling , Derm : No rash Psych : Normal affect. Ext : No swelling ,calf pain RT FOOT IN DRESSING. PE. Pt. is alert awake in no distress. V.S As noted in the chart Head ,ear nose,throat and eyes : Normal. Neck : Supple with normal carotids. Lungs: Clear air entry. Heart : S1 & S2 normal with S4. No murmur. Abd : Soft non tender with normal bowel sounds. Neuro : Moves all ext. with no localized deficit. Ext : LT.FOOT CHARCOT'S. RT FOOT 5TH DIGIT WITH SKIN MACERATION/MINIMAL DISCHARGE AND BLACK ESCHAR MEDIALLY. .Non tender calves PULSES DISTAL AND WEAK. Derm : No rashes or decubitus ulcer. LABS/RADIOLOGY: wbc 4.3. H/H 12.7 pLATELETS 88 LOW cREATININE 1.2/bun 30 LFTS BILI 0.8,AST 85, ALT 102 ( PT HAS HX OF HEP C ) VANCO TROUGH 15.9 OK WOUND CULTURE +VE corynebacterium species -skin johnathon Objective - Vital Signs/Intake and Output Vital Signs (last 24 hours): Temp Pulse Resp BP Pulse Ox 97.4 F L 73 18 192/78 H 97 07/31/16 07:00 07/31/16 07:00 07/31/16 07:00 07/31/16 09:40 07/31/16 07:00 Intake and Output: 07/31/16 07/31/16 06:59 18:59 Intake Total 520 Balance 520 - Medications Medications: Current Medications Amlodipine Besylate (Norvasc) 10 mg PO DAILY [facility] Last Admin: 07/31/16 09:38 Dose: 10 mg Aspirin (Aspirin Chewable) 81 mg PO DAILY [facility] Last Admin: 07/31/16 09:38 Dose: 81 mg Famotidine (Pepcid) 20 mg PO BID [facility] Last Admin: 07/31/16 09:38 Dose: 20 mg Furosemide (Lasix) 40 mg PO BID [facility] Last Admin: 07/31/16 09:40 Dose: 40 mg Heparin Sodium (Porcine) (Heparin) 5,000 units SC Q12 [facility] Last Admin: 07/31/16 09:38 Dose: 5,000 units Hydralazine HCl (Apresoline) 12.5 mg PO Q8 [facility] Last Admin: 07/31/16 05:38 Dose: 12.5 mg Piperacillin Sod/Tazobactam (Sod 3.375 gm/ Sodium Chloride) 100 mls @ 200 mls/ hr IVPB Q8H [facility] Last Admin: 07/31/16 08:45 Dose: 200 mls/hr Vancomycin/Sodium Chloride (Vancocin) 1 gm in 200 mls @ 133.333 mls/hr IVPB Q12H [facility] Last Admin: 07/31/16 02:00 Dose: 133.333 mls/hr Sodium Chloride (Sodium Chloride 0.9%) 1,000 mls @ 75 mls/hr IV .[id number] [facility] Last Admin: 07/31/16 09:43 Dose: Not Given Insulin Aspart (Novolog Mix 70/30 (70/30 Units/Ml)) 65 units SC ACBD [facility] Last Admin: 07/31/16 08:45 Dose: 65 units Insulin Aspart (Novolog) 0 unit SC ACHS [facility] PRN Reason: Protocol Last Admin: 07/31/16 12:03 Dose: 5 unit Losartan Potassium (Cozaar) 50 mg PO DAILY [facility] Last Admin: 07/31/16 09:38 Dose: 50 mg Metformin HCl (Glucophage) 500 mg PO BID [facility] Last Admin: 07/30/16 17:51 Dose: 500 mg Pneumococcal Polyvalent Vaccine (Pneumovax 23 Vaccine) 0.5 ml IM .ONCE ONE Stop: 07/31/16 14:01 - Labs Labs: 07/30/16 11:22 07/31/16 12:23 PT 11.0 SECONDS (9.7-12.2) 07/28/16 21:12 INR 1.0 07/28/16 21:12 APTT 34 SECONDS (21-34) 07/29/16 08:48 Assessment and Plan (1) Toe osteomyelitis, right Assessment & Plan: on iv ZOSYN 3.375 EVERY 8 HOURLY 07/29/16 dc iv vancomycin in the of leukopenia and thrombocytopenia and follow-up CBC. Patient reported to have hepatitis C. Leukopenia and thrombocytopenia could be related to liver disease. Will check HIV 1/2 antibody. FOR VASCULAR W/U- follow-up angiography report. PODIATRY ON BOARD. LOCAL WOUND CARE.WILL DISCUSS WITH PODIATRY FOR ?AMPUTATION RT. 5TH TOEIF VASCULAR STATUS PERMITS. Status: Acute (2) Hypertension Status: Chronic (3) Thrombocytopenia Status: Acute (4) Diabetes mellitus, insulin dependent (IDDM), uncontrolled Assessment & Plan: endocrinology on board. Status: Acute (5) Obesity (BMI 30-39.9) Status: Acute
[2016-07-31] MEDS ORDERED: Iodixanol 320 mg/ml 150 ml Bottle IV ONE (13:39)
[2016-07-31] MEDS ORDERED: Influenza Virus Vaccine 45 mcg/0.5 ml Syr IM ONE (14:00)
[2016-07-31] MEDS ORDERED: Pneumococcal 23-Valent Vaccine IM ONE (14:00)
[2016-07-31 18:02] LABS: ALB/GLOB RATIO 0.9 (1.0-2.1); BILIRUBIN,DIRECT 0.8 mg/dL (0.0-0.4); BILIRUBIN,TOTAL 0.8 mg/dL (0.2-1.3); TOTAL PROTEIN 7.2 g/dL (6.3-8.3)
[2016-07-31 18:14] LABS: BASO % 0.4 % (0.0-2.0); EOS # 0.3 K/uL (0.0-0.7); EOS % 6.5 % (0.0-4.0); HEMATOCRIT 37.4 % (35.0-51.0); LYMPH % 23.7 % (20.0-40.0); MEAN CELL VOLUME 100.1 fL (80.0-94.0); MEAN CORPUSCULAR HEMOGLOBIN 33.9 pg (27.0-31.0); MEAN CORPUSCULAR HGB CONC 33.9 g/dL (33.0-37.0); MEAN PLATELET VOLUME 10.4 fL (7.2-11.7); MONO # 0.7 K/uL (0.0-0.8); MONO % 17.4 % (0.0-10.0); WHITE BLOOD COUNT 4.3 K/uL (4.8-10.8)
--- NOTE | 2016-07-31 18:43 | CON ---
DATE: 07/31/2016 REASON FOR CONSULTATION: Preoperative evaluation. HISTORY OF PRESENT ILLNESS: The patient is a 60-year-old -[place] male who has history of hy pertension, diabetes mellitus, history of Charcot joint and was referred for admission because of a p resumed left fifth toe osteomyelitis. The patient is being seen by Dr. Garcia, pharmacy technician infusion as an outpa tient, and is awaiting his evaluation as an inpatient. The patient's left foot wound growing coryneb acterium species. The patient denies any fever or chills. The patient is unaware of any prior cardi ac history and denies any chest pain or shortness of breath. The patient reported that he had a smal l stroke many years ago. SOCIAL HISTORY: The patient is a nonsmoker. He is an occasional drinker. MEDICATIONS: Cozaar 50 mg once a day, Glucophage 500 mg once a day, heparin 5000 units subcutaneous twice a day, Lasix 40 mg p.o. twice a day, Norvasc 10 mg once a day, Pepcid 20 mg p.o. twice a day, Z osyn 3.375 grams intravenously q. 8 hours, normal saline 100 mL an hour, vancomycin 1 gram intravenou sly twice a day. REVIEW OF SYSTEMS: No vomiting or diarrhea. No chest pain. No palpitation, dizziness or diaphoresi s. PHYSICAL EXAMINATION: GENERAL: The patient is a middle-aged male who does not appear to be in any distress. VITAL SIGNS: Blood pressure 165/53, heart rate 79, temperature 97.7, respirations 18. HEENT: Normocephalic. NECK: No JVD. CHEST: Clear. HEART: S1, S2 regular. EXTREMITIES: Dressings applied to the left forefoot. LABORATORY DATA: CBC: WBC 4.4, hemoglobin 13.5, hematocrit 39.4, platelet count 81,000. Today's SM A-7 is within normal limits except for glucose of 325 and creatinine 130. PT, PTT are within normal limit. Bilateral feet reported prominent sclerotic lesion involving the right talus. Extensiv e degenerative changes bilaterally. Postoperative changes of the left foot and ankle. Bilateral sof t tissue swelling/cellulitis, most prominent laterally. Please note that MRI without and with IV con trast is more sensitive acute osteomyelitis. Abdominal angiograph was performed. However, the report is still pending. Review of evaluation today stated toe osteomyelitis which is acute. ASSESSMENT: 1. Consider acute left fifth toe osteomyelitis. 2. Peripheral vascular disease. 3. Diabetic neuropathy and Charcot joint. 4. Hypertension and diabetes mellitus. 5. Thrombocytopenia. RECOMMENDATIONS: Continue current Cozaar at 50 mg once a day, subcutaneous heparin 5000 units twice a day, Lasix at 40 mg p.o. twice a day, Norvasc 10 mg once a day. Continue IV Zosyn and IV vancomyci n. Obtain a 12-lead EKG and an echocardiogram preoperatively. Jc San MD cc: [id number] TT: 07/31/2016 18:43:05 Confirmation # [id number] Dictation # [id number] or
--- NOTE | 2016-07-31 20:40 | PN ---
DATE: 07/31/2016 SUBJECTIVE: Today, the patient is alert and awake, denies any shortness of breath, no chest pain. N o dizziness. No palpitation. The patient complaining of some discomfort to the toes. PHYSICAL EXAMINATION: VITAL SIGNS: The patient has a blood pressure of 163/58, pulse is 79, respirations 18, temperature 9 7.7. NECK: Supple. No JVD. LUNGS: Clear. HEART: Regular rate and rhythm. ABDOMEN: Soft, obese, nontender, no palpable mass. EXTREMITIES: There is deformity of the left ankle and there is some swelling of the big toe of the l eft foot and also there is dry ulcer to the right 5th toe. NEUROLOGIC: The patient has unsteady gait and also had numerous ____. LABORATORY DATA: The patient had some tests done including WBC 4.3, hemoglobin 12.7, hematocrit 37.4 and platelet 88. Chemistries: sodium 136, potassium 3.8, chloride 102, bicarbonate 23, BUN 30, cre atinine 1.2, glucose is 225, calcium 8.5. The patient today had different test done, had a PICC line inserted. Also patient has a CT angiogram done, the result is pending. The case was discussed with Maureen ZSYMANSKI and consideration for possible surgery, even amputati on, is entertained. But the patient has a cardiology consult with Dr. San for cardiologic even ts. So will continue the antibiotic therapy. Lars Pereira MD cc: [id number] TT: 07/31/2016 20:38:43 Confirmation # [id number] Dictation # [id number]
--- NOTE | 2016-07-31 22:41 | CP.PCM.CON ---
History of Present Illness - History of Present Illness History of Present Illness: uncontrolled IDDM Past Patient History - Infectious Disease Hx of Infectious Diseases: None - Past Medical History & Family History Past Medical History?: Yes - Past Social History Smoking Status: Former Smoker - CARDIAC Hx Hypertension: Yes (BP- 192/78) - ENDOCRINE/METABOLIC Hx Diabetes Mellitus Type 2: Yes - HEMATOLOGICAL/ONCOLOGICAL Hx Hepatitis C: Yes - MUSCULOSKELETAL/RHEUMATOLOGICAL Hx Falls: Yes - PSYCHIATRIC Hx Substance Use: No - SURGICAL HISTORY Hx Surgeries: Yes Other/Comment: lymph nodes removed from inguinal area. amputation to right toes done - ANESTHESIA Hx Anesthesia: Yes Hx Anesthesia Reactions: No Meds Allergies/Adverse Reactions: Allergies Allergy/AdvReac Type Severity Reaction Status Date / Time No Known Allergies Allergy Verified 07/28/16 18:56 - Medications Medications: Current Medications Amlodipine Besylate (Norvasc) 10 mg PO DAILY [facility] Last Admin: 07/31/16 09:38 Dose: 10 mg Aspirin (Aspirin Chewable) 81 mg PO DAILY [facility] Last Admin: 07/31/16 09:38 Dose: 81 mg Famotidine (Pepcid) 20 mg PO BID [facility] Last Admin: 07/31/16 18:17 Dose: 20 mg Furosemide (Lasix) 40 mg PO BID [facility] Last Admin: 07/31/16 18:17 Dose: 40 mg Heparin Sodium (Porcine) (Heparin) 5,000 units SC Q12 [facility] Last Admin: 07/31/16 22:25 Dose: 5,000 units Hydralazine HCl (Apresoline) 12.5 mg PO Q8 [facility] Last Admin: 07/31/16 22:25 Dose: 12.5 mg Piperacillin Sod/Tazobactam (Sod 3.375 gm/ Sodium Chloride) 100 mls @ 200 mls/ hr IVPB Q8H [facility] Last Admin: 07/31/16 14:30 Dose: 200 mls/hr Sodium Chloride (Sodium Chloride 0.9%) 1,000 mls @ 100 mls/hr IV .Q10H [facility] Last Admin: 07/31/16 18:42 Dose: Not Given Insulin Aspart (Novolog Mix 70/30 (70/30 Units/Ml)) 65 units SC ACBD [facility] Last Admin: 07/31/16 18:16 Dose: 65 units Insulin Aspart (Novolog) 0 unit SC ACHS [facility] PRN Reason: Protocol Last Admin: 07/31/16 22:02 Dose: Not Given Losartan Potassium (Cozaar) 50 mg PO DAILY [facility] Last Admin: 07/31/16 09:38 Dose: 50 mg Metformin HCl (Glucophage) 500 mg PO BID [facility] Last Admin: 07/30/16 17:51 Dose: 500 mg Results - Vital Signs Recent Vital Signs: Last Vital Signs Temp 97.7 F 07/31/16 15:26 Pulse 79 07/31/16 15:26 Resp 18 07/31/16 15:26 BP 163/58 H 07/31/16 18:17 Pulse Ox 97 07/31/16 15:26 - Labs Result Diagrams: 07/31/16 17:44 07/31/16 12:23 Labs: Laboratory Results - last 24 hr 07/29/16 07/31/16 07/31/16 08:48 06:26 11:34 WBC RBC Hgb Hct MCV MCH MCHC RDW Plt Count MPV Neut % (Auto) Lymph % (Auto) [place] % (Auto) Eos % (Auto) Baso % (Auto) Neut # Lymph # [place] # Eos # Baso # Sodium Potassium Chloride Carbon Dioxide Anion Gap BUN Creatinine Est GFR ( Amer) Est GFR (Non-Af Amer) POC Glucose (mg/dL) 262 H 373 H Random Glucose Hemoglobin A1c 8.5 H Calcium Total Bilirubin Direct Bilirubin AST ALT Alkaline Phosphatase Total Protein Albumin Globulin Albumin/Globulin Ratio Vancomycin Trough 07/31/16 07/31/16 07/31/16 12:23 12:23 16:19 WBC RBC Hgb Hct MCV MCH MCHC RDW Plt Count MPV Neut % (Auto) Lymph % (Auto) [place] % (Auto) Eos % (Auto) Baso % (Auto) Neut # Lymph # [place] # Eos # Baso # Sodium 136 Potassium 3.8 Chloride 102 Carbon Dioxide 23 Anion Gap 14 BUN 30 H Creatinine 1.2 Est GFR ( Amer) > 60 Est GFR (Non-Af Amer) > 60 POC Glucose (mg/dL) 323 H Random Glucose 325 H Hemoglobin A1c Calcium 8.2 L Total Bilirubin Direct Bilirubin AST ALT Alkaline Phosphatase Total Protein Albumin Globulin Albumin/Globulin Ratio Vancomycin Trough 15.9 H 07/31/16 07/31/16 07/31/16 17:44 17:44 21:36 WBC 4.3 L RBC 3.74 L Hgb 12.7 Hct 37.4 MCV 100.1 H MCH 33.9 H MCHC 33.9 RDW 13.0 Plt Count 88 L MPV 10.4 Neut % (Auto) 52.0 Lymph % (Auto) 23.7 [place] % (Auto) 17.4 H Eos % (Auto) 6.5 H Baso % (Auto) 0.4 Neut # 2.2 Lymph # 1.0 [place] # 0.7 Eos # 0.3 Baso # 0.0 Sodium Potassium Chloride Carbon Dioxide Anion Gap BUN Creatinine Est GFR ( Amer) Est GFR (Non-Af Amer) POC Glucose (mg/dL) 111 H Random Glucose Hemoglobin A1c Calcium Total Bilirubin 0.8 Direct Bilirubin 0.8 H AST 85 H ALT 102 H Alkaline Phosphatase 86 Total Protein 7.2 Albumin 3.4 L Globulin 3.9 Albumin/Globulin Ratio 0.9 L Vancomycin Trough Assessment & Plan (1) Diabetes mellitus, insulin dependent (IDDM), uncontrolled Assessment and Plan: Endocrine consult reason for consult: uncontrolled diabetes Mr. Boland is 60 y/o admitted for right toe osteomylitis on bone scan 2016 as per pt. has DM x > 30 (+) neuropathy , (+) retinopathy s/p laser , (-) nephropathy , Left charcot foot outpatient diabetes management regimen : novolog 70/30 65 bid , metformin 500 mg po bid inpatient diabetes management regimen : blood glucose log :200-300 , s/p right leg vascular procedure today NO hypoglycemia Allergy NKDA Past medical history : HTN , hepatitic C Past surgical history : left leg surgery Psychiatry history : denies Social history : ex smoking , exETOH use , ex illicit drug use Family history : mother with dm ROS: Constitutional: denies fever ,tiredness/weakness .HEENT: denies earache, change in voice .Respiratory: denies cough, sob . CVS :no chest pain, no palpitations . Abdomen : no abdominal pain, no nausea /vomiting , no change bowel movement . RECORD SYSTEMS ANALYST : denies light-headedness, dizziness. Extremities : no edema , no tremors . Skin: no itching, no rash Physical exam Well developed AAO x3 , ,NAD VSS HEENT: norm cephalic, atraumatic , no lid lag , no exophthalmos NECK: supple, no palpable lymphadenopathy THYROID: no palpable thyromegaly , not tender CHEST: fair air entry, bilateral, CVS: S1,S2 ABDOMEN: bowel sound present, benign, obese, no wide purple striae , no bruises EXTREMITIES: left led pitting edema clubbing or cyanosis, no palpable hand tremors , left & right foot with dressing Skin : acanthosis nigricans lab: tsh 2.30 , a1c 8.5 Assessment uncontrolled IDDM with neuropathy & retinopathy Left charcot foot right toe osteomylitis obesity plan stop Metformin stop Novolog 70/30 start levemir 60 units @ hs start Novolin R 20 units tid with meals if eat > 60 % of the meal start Novoloin R low dose coverage nutrtional evaluation & diabetic education will monitor Status: Acute (2) Toe osteomyelitis, right Status: Acute (3) Obesity (BMI 30-39.9) Status: Acute
[2016-08-01] MEDS: Sodium Chloride 0.9% 1,000 ML IV SCH (00:26)
[2016-08-01] MEDS: hydrALAZINE 12.5 mg Tab PO SCH (05:24)
[2016-08-01 07:09] LABS: BASO % 0.7 % (0.0-2.0); EOS # 0.3 K/uL (0.0-0.7); EOS % 5.3 % (0.0-4.0); HEMATOCRIT 38.3 % (35.0-51.0); LYMPH # 1.1 K/uL (1.0-4.3); LYMPH % 22.8 % (20.0-40.0); MEAN CELL VOLUME 99.1 fL (80.0-94.0); MEAN CORPUSCULAR HEMOGLOBIN 34.3 pg (27.0-31.0); MEAN CORPUSCULAR HGB CONC 34.6 g/dL (33.0-37.0); MEAN PLATELET VOLUME 9.6 fL (7.2-11.7); MONO # 0.9 K/uL (0.0-0.8); MONO % 18.1 % (0.0-10.0); RED CELL DISTRIBUTION WIDTH 12.9 % (11.5-14.5); WHITE BLOOD COUNT 4.9 K/uL (4.8-10.8)
[2016-08-01 07:32] LABS: CHLORIDE 104 mmol/L (98-107); SODIUM 140 mmol/L (132-148)
[2016-08-01 07:33] LABS: POTASSIUM 3.8 mmol/L (3.6-5.2)
[2016-08-01 07:35] LABS: ALB/GLOB RATIO 0.9 (1.0-2.1); ALKALINE PHOSPHATASE 90 U/L (38-126); ALT/SGPT 108 U/L (21-72); AST/SGOT 100 U/L (17-59); BILIRUBIN,DIRECT 0.6 mg/dL (0.0-0.4); BILIRUBIN,TOTAL 0.6 mg/dL (0.2-1.3); BLOOD UREA NITROGEN 27 mg/dL (9-20); CALCIUM 8.5 mg/dl (8.6-10.4); CARBON DIOXIDE 24 mmol/L (22-30); GFR AFRICAN-AMERICAN > 60; GLUCOSE,RANDOM 96 mg/dL (75-110); TOTAL PROTEIN 7.6 g/dL (6.3-8.3)
[2016-08-01] MEDS: (Novolin R) Insulin Human Regular 100 units/ml vial SC SCH ×6 (07:47→22:38)
[2016-08-01] MEDS: (Novolog) Insulin Aspart, Recombinant 100 u/ml 10 ml vial SC SCH (08:39)
[2016-08-01] MEDS: Piperacillin/Tazobact 3.375 GM in Sodium Chloride 100 ML IVPB SCH ×3 (09:10→22:37)
[2016-08-01] MEDS ORDERED: (Novolin R) Insulin Human Regular 100 units/ml vial SC SCH (10:00)
--- NOTE | 2016-08-01 10:46 | CP.PCM.PN ---
Subjective - Date & Time of Evaluation Date of Evaluation: 08/01/16 Time of Evaluation: 10:43 - Subjective Subjective: Surgery: Dr. Bernard Pt seen and examined. Resting comfortably in bed. Pain controlled. S/P CTA yesterday. Objective - Vital Signs/Intake and Output Vital Signs (last 24 hours): Temp Pulse Resp BP Pulse Ox 98.3 F 84 20 152/62 H 99 08/01/16 07:58 08/01/16 07:58 08/01/16 07:58 08/01/16 07:58 08/01/16 07:58 - Medications Medications: Current Medications Amlodipine Besylate (Norvasc) 10 mg PO DAILY [facility] Last Admin: 07/31/16 09:38 Dose: 10 mg Aspirin (Aspirin Chewable) 81 mg PO DAILY [facility] Last Admin: 07/31/16 09:38 Dose: 81 mg Famotidine (Pepcid) 20 mg PO BID [facility] Last Admin: 07/31/16 18:17 Dose: 20 mg Furosemide (Lasix) 40 mg PO BID [facility] Last Admin: 07/31/16 18:17 Dose: 40 mg Heparin Sodium (Porcine) (Heparin) 5,000 units SC Q12 [facility] Last Admin: 07/31/16 22:25 Dose: 5,000 units Hydralazine HCl (Apresoline) 25 mg PO Q8 [facility] Piperacillin Sod/Tazobactam (Sod 3.375 gm/ Sodium Chloride) 100 mls @ 200 mls/ hr IVPB Q8H [facility] Last Admin: 08/01/16 09:10 Dose: 200 mls/hr Sodium Chloride (Sodium Chloride 0.9%) 1,000 mls @ 100 mls/hr IV .Q10H [facility] Last Admin: 08/01/16 00:26 Dose: 100 mls/hr Insulin Detemir (Levemir) 60 unit SC HS [facility] Insulin Human Regular (Novolin R) 20 unit SC TID [facility] Last Admin: 08/01/16 09:10 Dose: 20 unit Insulin Human Regular (Novolin R) 0 unit SC ACHS [facility] PRN Reason: Protocol Last Admin: 08/01/16 07:47 Dose: Not Given Losartan Potassium (Cozaar) 50 mg PO DAILY [facility] Last Admin: 07/31/16 09:38 Dose: 50 mg - Labs Labs: 08/01/16 06:47 08/01/16 06:47 PT 11.0 SECONDS (9.7-12.2) 07/28/16 21:12 INR 1.0 07/28/16 21:12 APTT 34 SECONDS (21-34) 07/29/16 08:48 - Constitutional Appears: Non-toxic, No Acute Distress - Head Exam Head Exam: ATRAUMATIC, NORMOCEPHALIC - Eye Exam Eye Exam: EOMI. absent: Scleral icterus - ENT Exam ENT Exam: Mucous Membranes Moist - Neck Exam Neck Exam: Full ROM - Respiratory Exam Respiratory Exam: NORMAL BREATHING PATTERN. absent: Accessory Muscle Use, Respiratory Distress - GI/Abdominal Exam GI & Abdominal Exam: Soft. absent: Distended, Firm, Guarding, Rigid, Tenderness - Extremities Exam Extremities Exam: absent: Calf Tenderness, Pedal Edema Additional comments: dressings in place on feet B/L C/D/I - Neurological Exam Neurological Exam: Alert, Awake, Oriented x3 Assessment and Plan - Assessment and Plan (Free Text) Assessment: 60M w. PAD and osteomyelitis -s/p CTA, final read pending -will review imaging w. Dr. Bernard -further recommendations based on CTA results -d/w attending Zemaitis PGY2
--- NOTE | 2016-08-01 10:56 | CP.PCM.PN ---
Subjective - Date & Time of Evaluation Date of Evaluation: 08/01/16 Time of Evaluation: 10:55 - Subjective Subjective: Patient seen and evaluated at bedside, NAD. Patient denies any acute complaints at this time. Bandages are c/d/i to bilateral lower extremities. Objective - Vital Signs/Intake and Output Vital Signs (last 24 hours): Temp Pulse Resp BP Pulse Ox 98.3 F 84 20 152/62 H 99 08/01/16 07:58 08/01/16 07:58 08/01/16 07:58 08/01/16 07:58 08/01/16 07:58 - Medications Medications: Current Medications Amlodipine Besylate (Norvasc) 10 mg PO DAILY [facility] Last Admin: 07/31/16 09:38 Dose: 10 mg Aspirin (Aspirin Chewable) 81 mg PO DAILY [facility] Last Admin: 07/31/16 09:38 Dose: 81 mg Famotidine (Pepcid) 20 mg PO BID [facility] Last Admin: 07/31/16 18:17 Dose: 20 mg Furosemide (Lasix) 40 mg PO BID [facility] Last Admin: 07/31/16 18:17 Dose: 40 mg Heparin Sodium (Porcine) (Heparin) 5,000 units SC Q12 [facility] Last Admin: 07/31/16 22:25 Dose: 5,000 units Hydralazine HCl (Apresoline) 25 mg PO Q8 [facility] Piperacillin Sod/Tazobactam (Sod 3.375 gm/ Sodium Chloride) 100 mls @ 200 mls/ hr IVPB Q8H [facility] Last Admin: 08/01/16 09:10 Dose: 200 mls/hr Sodium Chloride (Sodium Chloride 0.9%) 1,000 mls @ 100 mls/hr IV .Q10H [facility] Last Admin: 08/01/16 00:26 Dose: 100 mls/hr Insulin Detemir (Levemir) 60 unit SC HS [facility] Insulin Human Regular (Novolin R) 20 unit SC TID [facility] Last Admin: 08/01/16 09:10 Dose: 20 unit Insulin Human Regular (Novolin R) 0 unit SC ACHS [facility] PRN Reason: Protocol Last Admin: 08/01/16 07:47 Dose: Not Given Losartan Potassium (Cozaar) 50 mg PO DAILY [facility] Last Admin: 07/31/16 09:38 Dose: 50 mg - Labs Labs: 08/01/16 06:47 08/01/16 06:47 PT 11.0 SECONDS (9.7-12.2) 07/28/16 21:12 INR 1.0 07/28/16 21:12 APTT 34 SECONDS (21-34) 07/29/16 08:48 - Constitutional Appears: Well, Non-toxic, No Acute Distress - Neurological Exam Neurological Exam: Oriented x3 - Psychiatric Exam Psychiatric exam: Normal Affect, Normal Mood - Additional Findings Additional findings: DERMATOLOGIC: Left hallux superficial ulceration with granular base, no drainage, no erythema , no purulence. Surrounding skin is hyperkeratotic with mild eschar formation. There is mild hyperpigmentation present. Right fifth digit ulceration with exposed bone, necrotic and fibrotic wound base , no drainage, no erythema, no purulence. Proximal skin is intact VASCULAR: DP pulses 1/4, PT pulses non palpable, skin temperature normal, mild edema of the left hallux and the right fifth digit. NEUROLOGIC: Gross sensation intact, protective sensation decreased, motor function intact Assessment and Plan - Assessment and Plan (Free Text) Assessment: 60 year old male with right 5th digit necrotic ulceration with osteomyelitis, left hallux superficial ulceration Plan: Patient seen and evaluated, d/w attending Dr. Garcia Patient had CTA yesterday, awaiting official read Patients bandages changed to left hallux and right 5th digit with DSD Bone scan positive for OM, will consider intervention after vascular recs Podiatry will continue to follow
--- NOTE | 2016-08-01 13:26 | CT ---
PROCEDURE: CT Angiography Abdomen, Pelvis and Lower Extremity with Contrast HISTORY: Vascular eval COMPARISON: None. TECHNIQUE: Technique: CT angiography of the abdomen, pelvis and bilateral lower extremities performed in the arterial phase of enhancement. Coronal and sagittal reformats, and well as rotating MIP images of the vessels generated at the workstation. Intravenous contrast dose: 150 milliliters Visipaque 320 Radiation dose: Total exam DLP = 2444.96 MGy-cm. This CT exam was performed using one or more of the following dose reduction techniques: Automated exposure control, adjustment of the mA and/or kV according to patient size, and/or use of iterative reconstruction technique. FINDINGS: CT ANGIOGRAPHY: ABDOMINAL AORTA:: Moderate calcific plaque in the abdominal aorta without stenosis or aneurysm MAJOR AORTIC BRANCHES: Celiac [place]: 50 percent stenosis at the celiac origin with poststenotic dilatation Superior mesenteric artery: Unremarkable. Inferior mesenteric artery: Unremarkable. Renal arteries: Unremarkable. PELVIC ARTERIES: Right Common Iliac: Moderate calcific plaque with no stenosis Right External Iliac: Unremarkable. Right Internal Iliac: Unremarkable. Left Common Iliac: Calcific plaque with no stenosis Left External Iliac: Unremarkable. Left Internal Iliac: Unremarkable. RIGHT LOWER EXTREMITY ARTERIES: Right Common Femoral: Moderate calcific plaque with no stenosis Right Superficial Femoral: Diffusely moderate calcific plaque with areas of moderate stenosis in the mid and distal SFA estimated to be approximately 40 percent. Right Profunda Femoris: Unremarkable. Right Popliteal:Moderate calcific plaque with no stenosis Right Anterior Tibial: Heavily calcified which limits its evaluation. Right Tibioperoneal Trunk: Unremarkable. Right Posterior Tibial: Unremarkable. Right Peroneal: Heavily calcified which limits its evaluation Right dorsalis pedis : Heavily calcified which limits its evaluation LEFT LOWER EXTREMITY ARTERIES: Left Common Femoral: Moderate calcific plaque with no stenosis Left Superficial Femoral: Diffuse moderate calcific plaque with areas of severe stenosis in the distal segment approximately 80 percent. Left Profunda Femoris: Unremarkable. Left Popliteal: Moderate calcific plaque with no stenosis. Left Anterior Tibial: Heavily calcified which limits evaluation Left Tibioperoneal Trunk: Unremarkable. Left Posterior Tibial: Heavily calcified proximally which limits evaluation. The middle and distal segments are unremarkable. Left Peroneal: Heavily calcified which limits evaluation Left Dorsalis pedis: Unremarkable. NON-ANGIOGRAPHIC ASPECT OF THE EXAM: LOWER THORAX: Unremarkable. LIVER: Unremarkable. No gross lesion or ductal dilatation. GALLBLADDER AND BILE DUCTS: Unremarkable. PANCREAS: Unremarkable. No gross lesion or ductal dilatation. SPLEEN: Unremarkable. ADRENALS: Unremarkable. No mass. KIDNEYS AND URETERS: Unremarkable. No hydronephrosis. No solid mass. STOMACH AND BOWEL: Unremarkable. No obstruction. No gross mural thickening. APPENDIX: PERITONEUM: Unremarkable. No free fluid. No free air. LYMPH NODES: Unremarkable. No enlarged lymph nodes. BLADDER: Unremarkable. REPRODUCTIVE: Unremarkable. BONES: Previous ORIF left foot. OTHER FINDINGS: None. IMPRESSION: CT ANGIOGRAM ABDOMEN/PELVIS: 1. Mild calcific plaque throughout the abdominal aorta without stenosis or aneurysm. 2. 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 3. Pelvic vessels essentially unremarkable. LEFT LOWER EXTREMITY CT ANGIOGRAM: 1. Common femoral artery profunda femoral artery are patent despite moderate calcific plaque. 2. There is diffuse moderate plaque throughout the SFA with an area of moderate to severe stenosis and distal SFA estimated to be 80 percent. 3. Moderate calcific plaque of the popliteal artery which is patent. 4. Left runoff shows a patent posterior tibial artery. Evaluation of the anterior tibial artery peroneal artery is very limited given the degree of calcification. The tibioperoneal artery is likewise early calcified. RIGHT LOWER EXTREMITY CT ANGIOGRAM: 1. Moderate plaque of the common femoral artery profunda femoral artery which are both patent. 2. Moderate diffuse plaque throughout the SFA which is patent. There is an area of moderate stenosis within the mid and distal SFA and estimated to be 40percent NONVASCULAR FINDINGS:
--- NOTE | 2016-08-01 13:53 | PN ---
DATE: 08/01/2016 SUBJECTIVE: The patient denies any chest pain or shortness of breath. PHYSICAL EXAMINATION: VITAL SIGNS: Blood pressure 184/73, heart rate 84, temperature 98.3, respirations 20. HEENT: Normocephalic. NECK: No JVD. CHEST: Clear. HEART: S1, S2 regular. EXTREMITIES: Trace leg edema. LABORATORIES: Today's hemoglobin and hematocrit 13.3 and 38.3, white count 4.9, platelet count is 85 ,000. Today's SMA-7 is within normal limit except for BUN of 27. EKG revealed sinus rhythm at 75 pe r minute, left atrial enlargement. Consider inferolateral ischemia. ASSESSMENT: 1. Left fifth toe osteomyelitis. 2. Charcot joint and peripheral neuropathy. 3. Inferolateral ischemic EKG changes. 4. Hypertension and diabetes mellitus. RECOMMENDATIONS: Continue current IV Zosyn. Continue Cozaar at 50 mg once a day, Lasix at 40 mg p.o . twice a day, aspirin at 81 mg once a day, hydralazine at 25 mg p.o. q.8 hours. Start atenolol at 1 2.5 mg orally once a day. I will review the echocardiograph study performed today. Jc San MD cc: [id number] TT: 08/01/2016 13:52:45 Confirmation # [id number] Dictation # [id number]
--- NOTE | 2016-08-01 16:35 | CP.PCM.PN ---
Subjective - Date & Time of Evaluation Date of Evaluation: 08/01/16 Time of Evaluation: 16:34 - Subjective Subjective: RECOMMEND THERAPEUTIC ANGIOGRAM PATIENT UNDECIDED Objective - Vital Signs/Intake and Output Vital Signs (last 24 hours): Temp Pulse Resp BP Pulse Ox 98.3 F 84 20 184/73 H 99 08/01/16 07:58 08/01/16 07:58 08/01/16 07:58 08/01/16 11:02 08/01/16 07:58 - Medications Medications: Current Medications Amlodipine Besylate (Norvasc) 10 mg PO DAILY [facility] Last Admin: 08/01/16 11:02 Dose: 10 mg Aspirin (Aspirin Chewable) 81 mg PO DAILY [facility] Last Admin: 08/01/16 11:02 Dose: 81 mg Atenolol (Tenormin) 12.5 mg PO DAILY [facility] Last Admin: 08/01/16 14:04 Dose: 12.5 mg Famotidine (Pepcid) 20 mg PO BID [facility] Last Admin: 08/01/16 11:02 Dose: 20 mg Furosemide (Lasix) 40 mg PO BID [facility] Last Admin: 08/01/16 11:02 Dose: 40 mg Heparin Sodium (Porcine) (Heparin) 5,000 units SC Q12 [facility] Last Admin: 08/01/16 11:02 Dose: 5,000 units Hydralazine HCl (Apresoline) 25 mg PO Q8 [facility] Last Admin: 08/01/16 13:35 Dose: 25 mg Piperacillin Sod/Tazobactam (Sod 3.375 gm/ Sodium Chloride) 100 mls @ 200 mls/ hr IVPB Q8H [facility] Last Admin: 08/01/16 15:12 Dose: 200 mls/hr Insulin Detemir (Levemir) 60 unit SC HS [facility] Insulin Human Regular (Novolin R) 0 unit SC ACHS [facility] PRN Reason: Protocol Last Admin: 08/01/16 13:35 Dose: 3 unit Insulin Human Regular (Novolin R) 20 unit SC TIDCC [facility] Last Admin: 08/01/16 13:36 Dose: 20 unit Losartan Potassium (Cozaar) 50 mg PO DAILY [facility] Last Admin: 08/01/16 11:02 Dose: 50 mg - Labs Labs: 08/01/16 06:47 08/01/16 06:47 PT 11.0 SECONDS (9.7-12.2) 07/28/16 21:12 INR 1.0 07/28/16 21:12 APTT 34 SECONDS (21-34) 07/29/16 08:48
--- NOTE | 2016-08-01 21:12 | CP.PCM.PN ---
Subjective - Date & Time of Evaluation Date of Evaluation: 08/01/16 Time of Evaluation: 21:04 - Subjective Subjective: uncontrolled IDDM Objective - Vital Signs/Intake and Output Vital Signs (last 24 hours): Temp Pulse Resp BP Pulse Ox 98.4 F 74 20 130/56 L 97 08/01/16 15:30 08/01/16 15:30 08/01/16 15:30 08/01/16 15:30 08/01/16 15:30 - Medications Medications: Current Medications Amlodipine Besylate (Norvasc) 10 mg PO DAILY [facility] Last Admin: 08/01/16 11:02 Dose: 10 mg Aspirin (Aspirin Chewable) 81 mg PO DAILY [facility] Last Admin: 08/01/16 11:02 Dose: 81 mg Atenolol (Tenormin) 12.5 mg PO DAILY [facility] Last Admin: 08/01/16 14:04 Dose: 12.5 mg Famotidine (Pepcid) 20 mg PO BID [facility] Last Admin: 08/01/16 18:31 Dose: 20 mg Furosemide (Lasix) 40 mg PO BID [facility] Last Admin: 08/01/16 18:24 Dose: Not Given Heparin Sodium (Porcine) (Heparin) 5,000 units SC Q12 [facility] Last Admin: 08/01/16 11:02 Dose: 5,000 units Hydralazine HCl (Apresoline) 25 mg PO Q8 [facility] Last Admin: 08/01/16 13:35 Dose: 25 mg Piperacillin Sod/Tazobactam (Sod 3.375 gm/ Sodium Chloride) 100 mls @ 200 mls/ hr IVPB Q8H [facility] Last Admin: 08/01/16 15:12 Dose: 200 mls/hr Insulin Detemir (Levemir) 60 unit SC HS [facility] Insulin Human Regular (Novolin R) 0 unit SC ACHS [facility] PRN Reason: Protocol Last Admin: 08/01/16 18:22 Dose: 2 unit Insulin Human Regular (Novolin R) 20 unit SC TIDCC [facility] Last Admin: 08/01/16 18:22 Dose: 20 unit Losartan Potassium (Cozaar) 50 mg PO DAILY [facility] Last Admin: 08/01/16 11:02 Dose: 50 mg - Labs Labs: 08/01/16 06:47 08/01/16 06:47 PT 11.0 SECONDS (9.7-12.2) 07/28/16 21:12 INR 1.0 07/28/16 21:12 APTT 34 SECONDS (21-34) 07/29/16 08:48 Assessment and Plan (1) Diabetes mellitus, insulin dependent (IDDM), uncontrolled Assessment & Plan: Assessment and Plan: Endocrine consult reason for consult f/u for uncontrolled diabetes Mr. Boland is 60 y/o admitted for right toe osteomylitis on bone scan 2016 as per pt. has DM x > 30 (+) neuropathy , (+) retinopathy s/p laser , (-) nephropathy , Left charcot foot outpatient diabetes management regimen : novolog 70/30 65 bid , metformin 500 mg po bid inpatient diabetes management regimen : blood glucose log :200-300 , for therapeutic right leg angiogram in am , NPO after mid night NO hypoglycemia Allergy NKDA Past medical history : HTN , hepatitic C Past surgical history : left leg surgery Psychiatry history : denies Social history : ex smoking , exETOH use , ex illicit drug use Family history : mother with dm ROS: Constitutional: denies fever ,tiredness/weakness .HEENT: denies earache, change in voice .Respiratory: denies cough, sob . CVS :no chest pain, no palpitations . Abdomen : no abdominal pain, no nausea /vomiting , no change bowel movement . [employer] : denies light-headedness, dizziness. Extremities : no edema , no tremors . Skin: no itching, no rash Physical exam Well developed AAO x3 , ,NAD VSS HEENT: norm cephalic, atraumatic , no lid lag , no exophthalmos NECK: supple, no palpable lymphadenopathy THYROID: no palpable thyromegaly , not tender CHEST: fair air entry, bilateral, CVS: S1,S2 ABDOMEN: bowel sound present, benign, obese, no wide purple striae , no bruises EXTREMITIES: left led pitting edema clubbing or cyanosis, no palpable hand tremors , left & right foot with dressing Skin : acanthosis nigricans lab: tsh 2.30 , a1c 8.5 Assessment uncontrolled IDDM with neuropathy & retinopathy Left charcot foot right toe osteomylitis obesity plan continue levemir 60 units @ hs , give only 35 units toniht continue Novolin R 20 units tid with meals if eat > 60 % of the meal , hold if NPO continue Novoloin R low dose coverage , change to q6h if NPO nutrtional evaluation & diabetic education will monitor Status: Acute (2) Toe osteomyelitis, right Status: Acute (3) Obesity (BMI 30-39.9) Status: Acute
[2016-08-01 21:14] LABS: HEPATITIS C VIRAL RNA QUAL Detected
[2016-08-01] MEDS: Insulin Detemir 100 units/ml Vial (Levemir) SC SCH (21:57)
[2016-08-01] MEDS ORDERED: Insulin Detemir 100 units/ml Vial (Levemir) SC ONE (22:00)
--- NOTE | 2016-08-01 22:02 | CP.PCM.PN ---
Subjective - Date & Time of Evaluation Date of Evaluation: 08/01/16 Time of Evaluation: 22:02 - Subjective Subjective: CHIEF COMPLAINTS TODAY : afebrile Offers no new complaints s/p ZHAO SINGLE-LUMEN PICC LINE PLACEMENT 07/31/16 S/P ANGIOGRAPHY - FINDINGS NOTED DR HART -VASCULAR NOTED. ROS. HEENT : N. Resp : No cough, wheezing ,pleuritic CP ,or hemoptysis Cardio : No anginal CP, PND, orthopnea, palpitation GI : No abd.pain, n/v ,diarrhea or GI bleeding . CLAM SHUCKER : No headache, vertigo, focal deficit. Musculoskel : No joint swelling , Derm : No rash Psych : Normal affect. Ext : No swelling ,calf pain RT FOOT IN DRESSING. PE. Pt. is alert awake in no distress. V.S As noted in the chart Head ,ear nose,throat and eyes : Normal. Neck : Supple with normal carotids. Lungs: Clear air entry. Heart : S1 & S2 normal with S4. No murmur. Abd : Soft non tender with normal bowel sounds. Neuro : Moves all ext. with no localized deficit. Ext : LT.FOOT CHARCOT'S. RT FOOT 5TH DIGIT WITH SKIN MACERATION/MINIMAL DISCHARGE AND BLACK ESCHAR MEDIALLY. .Non tender calves PULSES DISTAL AND WEAK. Derm : No rashes or decubitus ulcer. LABS/RADIOLOGY: wbc 4.9. H/H 12.7 pLATELETS 85 LOW cREATININE 1.2/bun 27 LFTS BILI 0.8,AST 100, ALT 108 ( PT HAS HX OF HEP C ) HEPATITIS C +VE REACTIVE. HIV 1/2 AB -VE WOUND CULTURE +VE corynebacterium species -skin johnathon Objective - Vital Signs/Intake and Output Vital Signs (last 24 hours): Temp Pulse Resp BP Pulse Ox 98.4 F 74 20 130/56 L 97 08/01/16 15:30 08/01/16 15:30 08/01/16 15:30 08/01/16 15:30 08/01/16 15:30 - Medications Medications: Current Medications Amlodipine Besylate (Norvasc) 10 mg PO DAILY [facility] Last Admin: 08/01/16 11:02 Dose: 10 mg Aspirin (Aspirin Chewable) 81 mg PO DAILY [facility] Last Admin: 08/01/16 11:02 Dose: 81 mg Atenolol (Tenormin) 12.5 mg PO DAILY [facility] Last Admin: 08/01/16 14:04 Dose: 12.5 mg Famotidine (Pepcid) 20 mg PO BID [facility] Last Admin: 08/01/16 18:31 Dose: 20 mg Furosemide (Lasix) 40 mg PO BID [facility] Last Admin: 08/01/16 18:24 Dose: Not Given Heparin Sodium (Porcine) (Heparin) 5,000 units SC Q12 [facility] Last Admin: 08/01/16 11:02 Dose: 5,000 units Hydralazine HCl (Apresoline) 25 mg PO Q8 [facility] Last Admin: 08/01/16 13:35 Dose: 25 mg Piperacillin Sod/Tazobactam (Sod 3.375 gm/ Sodium Chloride) 100 mls @ 200 mls/ hr IVPB Q8H [facility] Last Admin: 08/01/16 15:12 Dose: 200 mls/hr Insulin Detemir (Levemir) 60 unit SC HS [facility] Last Admin: 08/01/16 21:57 Dose: Not Given Insulin Human Regular (Novolin R) 0 unit SC ACHS [facility] PRN Reason: Protocol Last Admin: 08/01/16 18:22 Dose: 2 unit Insulin Human Regular (Novolin R) 20 unit SC TIDCC [facility] Last Admin: 08/01/16 18:22 Dose: 20 unit Losartan Potassium (Cozaar) 50 mg PO DAILY [facility] Last Admin: 08/01/16 11:02 Dose: 50 mg - Labs Labs: 08/01/16 06:47 08/01/16 06:47 PT 11.0 SECONDS (9.7-12.2) 07/28/16 21:12 INR 1.0 07/28/16 21:12 APTT 34 SECONDS (21-34) 07/29/16 08:48 Assessment and Plan (1) Toe osteomyelitis, right Assessment & Plan: on iv ZOSYN 3.375 EVERY 8 HOURLY 07/29/16. OFF IV VANCOMYCIN. VASCULAR W/U- IN PROGRESS PT UNSURE OF THE PROCEDURE PODIATRY ON BOARD. LOCAL WOUND CARE. Status: Acute (2) Hypertension Status: Chronic (3) Thrombocytopenia Status: Acute (4) Diabetes mellitus, insulin dependent (IDDM), uncontrolled Status: Acute (5) Obesity (BMI 30-39.9) Status: Acute (6) Hepatitis C Assessment & Plan: PT KNOWN HEP C +VE. STATES HE F/U WITH GI DR LYNN. DID RECEIVE TREATMENT BY INJECTIONS IN PAST FEW YRS AGO, BUT DID NOT TOLERATE THEM. HAD SIDEFFECTS. F/U HCV RNA QUANTITATIVE LEVELS ORDERED BY PMD Status: Acute
[2016-08-02] MEDS: (Novolin R) Insulin Human Regular 100 units/ml vial SC SCH ×4 (06:04→21:47)
[2016-08-02 07:23] LABS: CHLORIDE 104 mmol/L (98-107)
[2016-08-02 07:24] LABS: POTASSIUM 4.1 mmol/L (3.6-5.2); SODIUM 140 mmol/L (132-148)
[2016-08-02 07:26] LABS: GFR AFRICAN-AMERICAN > 60
[2016-08-02 07:27] LABS: BLOOD UREA NITROGEN 22 mg/dL (9-20); CALCIUM 8.4 mg/dl (8.6-10.4); CARBON DIOXIDE 24 mmol/L (22-30); GLUCOSE,RANDOM 122 mg/dL (75-110)
[2016-08-02] MEDS: Piperacillin/Tazobact 3.375 GM in Sodium Chloride 100 ML IVPB SCH ×3 (08:17→22:29)
--- NOTE | 2016-08-02 09:09 | CP.PCM.PN ---
Subjective - Date & Time of Evaluation Date of Evaluation: 08/02/16 Time of Evaluation: 09:05 - Subjective Subjective: pt seen for chief complaint of ulcer toe 5 and OM toe 5 .Pt for vascular procedure with Dr Bernard today. Objective - Vital Signs/Intake and Output Vital Signs (last 24 hours): Temp Pulse Resp BP Pulse Ox 97.9 F 62 20 147/62 98 08/02/16 00:00 08/02/16 00:00 08/02/16 00:00 08/02/16 00:00 08/02/16 00:00 - Medications Medications: Current Medications Amlodipine Besylate (Norvasc) 10 mg PO DAILY [facility] Last Admin: 08/01/16 11:02 Dose: 10 mg Aspirin (Aspirin Chewable) 81 mg PO DAILY [facility] Last Admin: 08/01/16 11:02 Dose: 81 mg Atenolol (Tenormin) 12.5 mg PO DAILY [facility] Last Admin: 08/01/16 14:04 Dose: 12.5 mg Famotidine (Pepcid) 20 mg PO BID [facility] Last Admin: 08/01/16 18:31 Dose: 20 mg Furosemide (Lasix) 40 mg PO BID [facility] Last Admin: 08/01/16 18:24 Dose: Not Given Heparin Sodium (Porcine) (Heparin) 5,000 units SC Q12 [facility] Last Admin: 08/01/16 22:26 Dose: 5,000 units Hydralazine HCl (Apresoline) 25 mg PO Q8 [facility] Last Admin: 08/02/16 06:02 Dose: 25 mg Piperacillin Sod/Tazobactam (Sod 3.375 gm/ Sodium Chloride) 100 mls @ 200 mls/ hr IVPB Q8H [facility] Last Admin: 08/02/16 08:17 Dose: 200 mls/hr Insulin Detemir (Levemir) 60 unit SC HS [facility] Last Admin: 08/01/16 21:57 Dose: Not Given Insulin Human Regular (Novolin R) 0 unit SC ACHS [facility] PRN Reason: Protocol Last Admin: 08/01/16 22:38 Dose: Not Given Insulin Human Regular (Novolin R) 20 unit SC TIDCC [facility] Last Admin: 08/01/16 18:22 Dose: 20 unit Insulin Human Regular (Novolin R) 0 unit SC Q6 [facility] PRN Reason: Protocol Last Admin: 08/02/16 06:04 Dose: Not Given Losartan Potassium (Cozaar) 50 mg PO DAILY [facility] Last Admin: 08/01/16 11:02 Dose: 50 mg - Labs Labs: 08/01/16 06:47 08/02/16 06:59 PT 11.0 SECONDS (9.7-12.2) 07/28/16 21:12 INR 1.0 07/28/16 21:12 APTT 34 SECONDS (21-34) 07/29/16 08:48
--- NOTE | 2016-08-02 11:57 | CARD ---
APPROVED REPORT EKG Measurement Heart [id number] <Conclusion> Normal sinus rhythm Possible Left atrial enlargement Left ventricular hypertrophy Cannot rule out Septal infarct, age undetermined ST & T wave abnormality, consider inferolateral ischemia Abnormal ECG
[2016-08-02] MEDS ORDERED: Dextrose 5%/0.45% NS 1,000 ML IV SCH ×2 (12:15→16:00)
--- NOTE | 2016-08-02 12:31 | CARD ---
APPROVED REPORT EXAM: Two-dimensional and M-mode echocardiogram with Doppler and color Doppler. Other Information Quality : AverageRhythm : NSR INDICATION HEP-C, OSTEOMYELITIS 5TH TOA, EVALUATE EF RISK FACTORS Hypertension Diabetes M-Mode DIMENSIONS RVDd1.70 (2.1-3.2cm)Left Atrium (MM)4.03 (2.5-4.0cm) IVSd0.97 (0.7-1.1cm)Aortic Root3.37 (2.2-3.7cm) LVDd4.16 (4.0-5.6cm)Aortic Cusp Exc.1.84 (1.5-2.0cm) PWd1.84 (0.7-1.1cm)FS (%) 56 % LVDs1.84 (2.0-3.8cm)LVEF (%)87 (>50%) Aortic Valve AoV Peak Ovcmedjp750.9cm/Gerry Peak GR.13mmHg Mitral Valve MV E Dsrmzgcj36.9cm/sMV A Xqpnxdfk82.0cm/sE/A ratio0.8 TDI E/Lateral E'0.0E/Medial E'0.0 Tricuspid Valve TR Peak Vpreexvl674gz/sTR Peak Gr.40qeFzNLYA39reGf LEFT VENTRICLE The left ventricle is normal size. There is moderate concentric left ventricular hypertrophy. The left ventricular function is normal. The left ventricular ejection fraction is within the normal range. There is normal LV segmental wall motion. Tissue Doppler imaging reveals mild left ventricular diastolic dysfunction. Transmitral Doppler flow pattern is Grade I-abnormal relaxation pattern. No left ventricle thrombus noted on this study. There is no ventricular septal defect visualized. There is no left ventricular aneurysm. RIGHT VENTRICLE The right ventricle is normal size. There is normal right ventricular wall thickness. The right ventricular systolic function is normal. ATRIA The left atrium size is normal. The right atrium size is normal. The interatrial septum is intact with no evidence for an atrial septal defect. AORTIC VALVE The aortic valve is normal in structure. No aortic regurgitation is present. There is no aortic valvular stenosis. There is no aortic valvular vegetation. MITRAL VALVE The mitral valve is normal in structure. There is no mitral valve stenosis. There is no mitral valve regurgitation noted. TRICUSPID VALVE The tricuspid valve is normal in structure. There is no tricuspid valve regurgitation noted. PULMONIC VALVE The pulmonary valve is normal in structure. There is no pulmonic valvular regurgitation. GREAT VESSELS The aortic root is normal in size. The ascending aorta is normal in size. The pulmonary artery is normal. The IVC is normal in size and collapses >50% with inspiration. PERICARDIAL EFFUSION There is no pericardial effusion. <Conclusion> There is moderate concentric left ventricular hypertrophy. Tissue Doppler imaging reveals mild left ventricular diastolic dysfunction. Transmitral Doppler flow pattern is Grade I-abnormal relaxation pattern.
[2016-08-02] MEDS ORDERED: Iodixanol 320 MG/ML 200 ML BOTTLE IV ONE (13:44)
[2016-08-02] MEDS ORDERED: Lidocaine 2% Inj (20ml) ONE (13:45)
[2016-08-02] MEDS ORDERED: Dexmedetomidine Hydrochloride 100 mcg/ml (2ML) ONE (14:15)
--- NOTE | 2016-08-02 15:51 | PCM.SURG1 ---
Surgeon's Initial Post Op Note - Surgeon's Notes Surgeon: viry Steel Layer: 0 Type of Anesthesia: IV Sedation Anesthesia Administered By: saleem Pre-Operative Diagnosis: ischemic ulcers both feet Operative Findings: right side. PT and Peroneal occluded, anterior tibial open to foot. left side. Posterior tibial occluded anterior atibial and peroneal severly ~90% stenotic proximally. hardware and devices present on left ankle Post-Operative Diagnosis: same Operation Performed: aortofemoral angiogram with selective catherization of left femoral artery. balloon angioplasty to peroneal and anterior tibial on left with 2.5-3.5 balloons. perclose right groin Specimen/Specimens Removed: 0 Estimated Blood Loss: EBL {In ML}: 75 Blood Products Given: N/A Drains Used: No Drains Post-Op Condition: Good Date of Surgery/Procedure: 08/02/16 Time of Surgery/Procedure: 15:53
--- NOTE | 2016-08-02 18:54 | PN ---
DATE: 08/02/2016 The patient underwent right peripheral balloon angioplasty today. He denies any chest pain or leg pa in at this time. PHYSICAL EXAMINATION: VITAL SIGNS: Blood pressure 124/78, heart rate 66, temperature 97.3, respirations 18. HEENT: Normocephalic. NECK: No JVD. CHEST: Clear. HEART: S1, S2 regular. LABORATORIES: Today's SMA-7 is within normal limits except for glucose of 122 and BUN of 22. Echoca rdiograph study official report, moderate concentric LVH with normal left ventricular ejection fracti on and grade I abnormal relaxation pattern. ASSESSMENT: 1. Peripheral vascular disease, status post right leg balloon angioplasty. 2. Abnormal EKG with evidence of inferolateral ischemia. 3. Peripheral neuropathy and Charcot joint. 4. Hypertension. 5. Right big toe osteomyelitis. RECOMMENDATIONS: Continue IV Zosyn at 3.375 grams intravenously q. 8 hours. Continue Plavix 75 mg o nce a day, Norvasc 10 mg once a day, Lasix 40 mg p.o. once a day, subcutaneous heparin 5000 units twi ce a day and D5 half normal saline at 50 mL an hour. Obtain 12-lead EKG tomorrow and continue curren t atenolol at 12.5 mg once a day and aspirin 81 mg once a day. Jc San MD cc: [id number] TT: 08/02/2016 18:54:03 Confirmation # [id number] Dictation # [id number] en
--- NOTE | 2016-08-02 20:03 | PN ---
DATE: 08/02/2016 Today, patient is alert and awake, complaining of some discomfort to the left foot and no dizziness, no palpitation, no chest pain. The patient is scheduled today for stenting of the arteries of the lo wer extremities. PHYSICAL EXAMINATION: VITAL SIGNS: The patient has a blood pressure of 135 early this morning, 135/78, the pulse was 80, r espiration is 18, temperature 97.3. NECK: Supple. No JVD. LUNGS: Clear. HEART: Regular rate and rhythm, no murmur. ABDOMEN: Soft, obese, nontender. No palpable mass. EXTREMITIES: There is swelling of the MTP joint of the first big toe and also there is an ulcer on t he fifth toe of the right foot. LABORATORIES: Showed that the PT is 11, INR 1, PTT is 34. The CBC showed WBC 4.9, hemoglobin 13.2, hematocrit 38.3 and platelets 85. PLAN: The patient is going to have a surgery today and the patient is cleared for surgery with minim al medical risk. ADDENDUM: I received a call this afternoon from Dr. Bernard, who stated that the stent was placed. There was a balloon angioplasty to the peroneal and anterior tibial on the left with balloon. Lars Pereira MD cc: [id number] TT: 08/02/2016 20:03:18 Confirmation # [id number] Dictation # [id number] en
--- NOTE | 2016-08-02 21:44 | CP.PCM.PN ---
Subjective - Date & Time of Evaluation Date of Evaluation: 08/02/16 Time of Evaluation: 21:39 - Subjective Subjective: uncontrolled IDDM Objective - Vital Signs/Intake and Output Vital Signs (last 24 hours): Temp Pulse Resp BP Pulse Ox 97.3 F L 66 18 124/78 97 08/02/16 16:55 08/02/16 16:55 08/02/16 16:55 08/02/16 17:20 08/02/16 16:55 - Medications Medications: Current Medications Amlodipine Besylate (Norvasc) 10 mg PO DAILY [facility] Last Admin: 08/02/16 11:55 Dose: Not Given Aspirin (Aspirin Chewable) 81 mg PO DAILY [facility] Last Admin: 08/02/16 11:56 Dose: Not Given Atenolol (Tenormin) 12.5 mg PO DAILY [facility] Last Admin: 08/02/16 11:54 Dose: 12.5 mg Clopidogrel Bisulfate (Plavix) 75 mg PO DAILY [facility] Famotidine (Pepcid) 20 mg PO BID [facility] Last Admin: 08/02/16 17:20 Dose: 20 mg Furosemide (Lasix) 40 mg PO BID [facility] Last Admin: 08/02/16 17:20 Dose: 40 mg Heparin Sodium (Porcine) (Heparin) 5,000 units SC Q12 [facility] Last Admin: 08/01/16 22:26 Dose: 5,000 units Hydralazine HCl (Apresoline) 25 mg PO Q8 [facility] Last Admin: 08/02/16 13:21 Dose: Not Given Piperacillin Sod/Tazobactam (Sod 3.375 gm/ Sodium Chloride) 100 mls @ 200 mls/ hr IVPB Q8H [facility] Last Admin: 08/02/16 14:51 Dose: Not Given Dextrose/Sodium Chloride (Dextrose 5%/0.45% Ns 1000 Ml) 1,000 mls @ 50 mls/hr IV .Q20H [facility] Stop: 08/03/16 08:14 Last Admin: 08/02/16 12:06 Dose: 50 mls/hr Dextrose/Sodium Chloride (Dextrose 5%/0.45% Ns 1000 Ml) 1,000 mls @ 100 mls/hr IV .Q10H [facility] Last Admin: 08/02/16 17:24 Dose: 100 mls/hr Insulin Detemir (Levemir) 60 unit SC HS [facility] Last Admin: 08/01/16 21:57 Dose: Not Given Insulin Human Regular (Novolin R) 20 unit SC TIDCC [facility] Insulin Human Regular (Novolin R) 0 unit SC ACHS [facility] PRN Reason: Protocol Losartan Potassium (Cozaar) 50 mg PO DAILY [facility] Last Admin: 08/02/16 11:54 Dose: 50 mg - Labs Labs: 08/01/16 06:47 08/02/16 06:59 PT 11.0 SECONDS (9.7-12.2) 07/28/16 21:12 INR 1.0 07/28/16 21:12 APTT 34 SECONDS (21-34) 07/29/16 08:48 Assessment and Plan (1) Diabetes mellitus, insulin dependent (IDDM), uncontrolled Assessment & Plan: Endocrine consult reason for consult f/u for uncontrolled diabetes Mr. Boland is 60 y/o admitted for right toe osteomylitis on bone scan 2016 as per pt. has DM x > 30 (+) neuropathy , (+) retinopathy s/p laser , (-) nephropathy , Left charcot foot blood glucose log :130-170 s/p therapeutic angiogram today NO hypoglycemia Allergy NKDA Past medical history : HTN , hepatitic C Past surgical history : left leg surgery Psychiatry history : denies Social history : ex smoking , exETOH use , ex illicit drug use Family history : mother with dm ROS: Constitutional: denies fever ,tiredness/weakness .HEENT: denies earache, change in voice .Respiratory: denies cough, sob . CVS :no chest pain, no palpitations . Abdomen : no abdominal pain, no nausea /vomiting , no change bowel movement . DEVELOPMENT COACH : denies light-headedness, dizziness. Extremities : no edema , no tremors . Skin: no itching, no rash Physical exam Well developed AAO x3 , ,NAD VSS HEENT: norm cephalic, atraumatic , no lid lag , no exophthalmos NECK: supple, no palpable lymphadenopathy THYROID: no palpable thyromegaly , not tender CHEST: fair air entry, bilateral, CVS: S1,S2 ABDOMEN: bowel sound present, benign, obese, no wide purple striae , no bruises EXTREMITIES: left led pitting edema clubbing or cyanosis, no palpable hand tremors , left & right foot with dressing Skin : acanthosis nigricans lab: tsh 2.30 , a1c 8.5 Assessment uncontrolled IDDM with neuropathy & retinopathy Left charcot foot right toe osteomylitis obesity plan resume levemir 60 units @ hs resume Novolin R 20 units tid with meals if eat > 60 % of the meal , hold if NPO resume Novoloin R low dose coverage , change to q6h if NPO will monitor Status: Acute (2) Toe osteomyelitis, right Status: Acute (3) Obesity (BMI 30-39.9) Status: Acute
--- NOTE | 2016-08-02 21:48 | CP.PCM.PN ---
Subjective - Date & Time of Evaluation Date of Evaluation: 08/02/16 Time of Evaluation: 21:48 - Subjective Subjective: afebrile S/P aortofemoral angiogram with selective catherization of left femoral artery. balloon angioplasty to peroneal and anterior tibial on left with 2.5- 3.5 balloons. perclose right groin 08/02/16 s/p ZHAO SINGLE-LUMEN PICC LINE PLACEMENT 07/31/16 S/P ANGIOGRAPHY - FINDINGS NOTED DR HART -VASCULAR NOTED. ROS. HEENT : N. Resp : No cough, wheezing ,pleuritic CP ,or hemoptysis Cardio : No anginal CP, PND, orthopnea, palpitation GI : No abd.pain, n/v ,diarrhea or GI bleeding . LAUNDRY CLERK : No headache, vertigo, focal deficit. Musculoskel : No joint swelling , Derm : No rash Psych : Normal affect. Ext : No swelling ,calf pain RT FOOT IN DRESSING. PE. Pt. is alert awake in no distress. V.S As noted in the chart Head ,ear nose,throat and eyes : Normal. Neck : Supple with normal carotids. Lungs: Clear air entry. Heart : S1 & S2 normal with S4. No murmur. Abd : Soft non tender with normal bowel sounds. Neuro : Moves all ext. with no localized deficit. Ext : LT.FOOT CHARCOT'S. RT FOOT 5TH DIGIT WITH SKIN MACERATION/MINIMAL DISCHARGE AND BLACK ESCHAR MEDIALLY. .Non tender calves PULSES DISTAL AND WEAK. Derm : No rashes or decubitus ulcer. LABS/RADIOLOGY: wbc 4.9. H/H 12.7 pLATELETS 85 LOW CREATININE 5/3 1.1/BUN 22 LFTS BILI 0.8,AST 100, ALT 108 ( PT HAS HX OF HEP C ) HEPATITIS C +VE REACTIVE. HIV 1/2 AB -VE WOUND CULTURE +VE corynebacterium species -skin johnathon Objective - Vital Signs/Intake and Output Vital Signs (last 24 hours): Temp Pulse Resp BP Pulse Ox 97.3 F L 66 18 124/78 97 08/02/16 16:55 08/02/16 16:55 08/02/16 16:55 08/02/16 17:20 08/02/16 16:55 - Medications Medications: Current Medications Amlodipine Besylate (Norvasc) 10 mg PO DAILY [facility] Last Admin: 08/02/16 11:55 Dose: Not Given Aspirin (Aspirin Chewable) 81 mg PO DAILY [facility] Last Admin: 08/02/16 11:56 Dose: Not Given Atenolol (Tenormin) 12.5 mg PO DAILY [facility] Last Admin: 08/02/16 11:54 Dose: 12.5 mg Clopidogrel Bisulfate (Plavix) 75 mg PO DAILY [facility] Famotidine (Pepcid) 20 mg PO BID [facility] Last Admin: 08/02/16 17:20 Dose: 20 mg Furosemide (Lasix) 40 mg PO BID [facility] Last Admin: 08/02/16 17:20 Dose: 40 mg Heparin Sodium (Porcine) (Heparin) 5,000 units SC Q12 [facility] Last Admin: 08/01/16 22:26 Dose: 5,000 units Hydralazine HCl (Apresoline) 25 mg PO Q8 [facility] Last Admin: 08/02/16 13:21 Dose: Not Given Piperacillin Sod/Tazobactam (Sod 3.375 gm/ Sodium Chloride) 100 mls @ 200 mls/ hr IVPB Q8H [facility] Last Admin: 08/02/16 14:51 Dose: Not Given Dextrose/Sodium Chloride (Dextrose 5%/0.45% Ns 1000 Ml) 1,000 mls @ 50 mls/hr IV .Q20H [facility] Stop: 08/03/16 08:14 Last Admin: 08/02/16 12:06 Dose: 50 mls/hr Dextrose/Sodium Chloride (Dextrose 5%/0.45% Ns 1000 Ml) 1,000 mls @ 100 mls/hr IV .Q10H [facility] Last Admin: 08/02/16 17:24 Dose: 100 mls/hr Insulin Detemir (Levemir) 60 unit SC HS [facility] Last Admin: 08/01/16 21:57 Dose: Not Given Insulin Human Regular (Novolin R) 20 unit SC TIDCC [facility] Insulin Human Regular (Novolin R) 0 unit SC ACHS [facility] PRN Reason: Protocol Last Admin: 08/02/16 21:47 Dose: Not Given Losartan Potassium (Cozaar) 50 mg PO DAILY [facility] Last Admin: 08/02/16 11:54 Dose: 50 mg - Labs Labs: 08/01/16 06:47 08/02/16 06:59 PT 11.0 SECONDS (9.7-12.2) 07/28/16 21:12 INR 1.0 07/28/16 21:12 APTT 34 SECONDS (21-34) 07/29/16 08:48 Assessment and Plan (1) Toe osteomyelitis, right Assessment & Plan: ON iv ZOSYN 3.375 EVERY 8 HOURLY 07/29/16. PER VASCULAR SURGERY/PODIATRY Status: Acute (2) Hypertension Status: Chronic (3) Thrombocytopenia Status: Acute (4) Diabetes mellitus, insulin dependent (IDDM), uncontrolled Status: Acute (5) Obesity (BMI 30-39.9) Status: Acute (6) Hepatitis C Status: Acute
[2016-08-02] MEDS: Sodium Chloride 0.9% 1,000 ML IV SCH (22:19)
[2016-08-02] MEDS: Insulin Detemir 100 units/ml Vial (Levemir) SC SCH (22:50)
[2016-08-03 01:36] VITALS: RESP 20
[2016-08-03] MEDS: Piperacillin/Tazobact 3.375 GM in Sodium Chloride 100 ML IVPB SCH (06:55)
[2016-08-03 07:26] LABS: HEMATOCRIT 35.1 % (35.0-51.0); MEAN CELL VOLUME 99.4 fL (80.0-94.0); MEAN CORPUSCULAR HEMOGLOBIN 33.9 pg (27.0-31.0); MEAN CORPUSCULAR HGB CONC 34.1 g/dL (33.0-37.0); MEAN PLATELET VOLUME 9.4 fL (7.2-11.7); WHITE BLOOD COUNT 6.3 K/uL (4.8-10.8)
[2016-08-03 07:38] LABS: CHLORIDE 104 mmol/L (98-107); POTASSIUM 3.7 mmol/L (3.6-5.2); SODIUM 137 mmol/L (132-148)
[2016-08-03 07:40] LABS: ALB/GLOB RATIO 0.8 (1.0-2.1); ALKALINE PHOSPHATASE 73 U/L (38-126); ALT/SGPT 114 U/L (21-72); AST/SGOT 84 U/L (17-59); BILIRUBIN,TOTAL 0.7 mg/dL (0.2-1.3); BLOOD UREA NITROGEN 20 mg/dL (9-20); CARBON DIOXIDE 26 mmol/L (22-30); GFR AFRICAN-AMERICAN > 60; TOTAL PROTEIN 6.8 g/dL (6.3-8.3)
[2016-08-03 07:41] LABS: CALCIUM 7.9 mg/dl (8.6-10.4); GLUCOSE,RANDOM 210 mg/dL (75-110)
[2016-08-03] MEDS: Sodium Chloride 0.9% 1,000 ML IV SCH ×2 (08:15→09:58)
[2016-08-03] MEDS: (Novolin R) Insulin Human Regular 100 units/ml vial SC SCH ×4 (09:54→13:18)
--- NOTE | 2016-08-03 12:27 | CP.PCM.PN ---
Subjective - Date & Time of Evaluation Date of Evaluation: 08/03/16 Time of Evaluation: 12:25 - Subjective Subjective: Patient seen and evaluated at bedside, NAD. Patient with no acute complaints at this time, denies pain to bilateral lower extremities. Patient does not have bandages in place. Denies n/v/f/c/sob. Objective - Vital Signs/Intake and Output Vital Signs (last 24 hours): Temp Pulse Resp BP Pulse Ox 98.1 F 78 20 151/80 H 98 08/03/16 07:23 08/03/16 07:23 08/03/16 07:23 08/03/16 07:23 08/03/16 07:23 Intake and Output: 08/03/16 08/03/16 06:59 18:59 Intake Total 1000 Output Total 400 Balance 600 - Medications Medications: Current Medications Amlodipine Besylate (Norvasc) 10 mg PO DAILY [facility] Last Admin: 08/03/16 09:55 Dose: 10 mg Aspirin (Aspirin Chewable) 81 mg PO DAILY [facility] Last Admin: 08/03/16 09:55 Dose: 81 mg Atenolol (Tenormin) 12.5 mg PO DAILY [facility] Last Admin: 08/03/16 09:56 Dose: 12.5 mg Clopidogrel Bisulfate (Plavix) 75 mg PO DAILY [facility] Last Admin: 08/03/16 09:55 Dose: 75 mg Famotidine (Pepcid) 20 mg PO BID [facility] Last Admin: 08/03/16 09:55 Dose: 20 mg Furosemide (Lasix) 40 mg PO BID [facility] Last Admin: 08/03/16 09:55 Dose: Not Given Heparin Sodium (Porcine) (Heparin) 5,000 units SC Q12 [facility] Last Admin: 08/03/16 09:55 Dose: 5,000 units Hydralazine HCl (Apresoline) 25 mg PO Q8 [facility] Last Admin: 08/03/16 05:23 Dose: 25 mg Piperacillin Sod/Tazobactam (Sod 3.375 gm/ Sodium Chloride) 100 mls @ 200 mls/ hr IVPB Q8H [facility] Last Admin: 08/03/16 06:55 Dose: 200 mls/hr Sodium Chloride (Sodium Chloride 0.9%) 1,000 mls @ 100 mls/hr IV .Q10H [facility] Last Admin: 08/03/16 09:58 Dose: 100 mls/hr Insulin Detemir (Levemir) 60 unit SC HS [facility] Last Admin: 08/02/16 22:50 Dose: 60 unit Insulin Human Regular (Novolin R) 20 unit SC TIDCC [facility] Last Admin: 08/03/16 09:54 Dose: 20 unit Insulin Human Regular (Novolin R) 0 unit SC ACHS [facility] PRN Reason: Protocol Last Admin: 08/03/16 09:54 Dose: 2 unit Losartan Potassium (Cozaar) 50 mg PO DAILY [facility] Last Admin: 08/03/16 09:55 Dose: 50 mg - Labs Labs: 08/03/16 07:15 08/03/16 07:15 PT 11.0 SECONDS (9.7-12.2) 07/28/16 21:12 INR 1.0 07/28/16 21:12 APTT 34 SECONDS (21-34) 07/29/16 08:48 - Constitutional Appears: Well, Non-toxic, No Acute Distress - Neurological Exam Neurological Exam: Oriented x3 - Psychiatric Exam Psychiatric exam: Normal Affect, Normal Mood - Additional Findings Additional findings: DERMATOLOGIC: Left hallux superficial ulceration with granular base, no drainage, no erythema , no purulence. Surrounding skin is hyperkeratotic with mild eschar formation. There is mild hyperpigmentation present. Right fifth digit ulceration with exposed bone, necrotic and fibrotic wound base , no drainage, no erythema, no purulence. Proximal skin is intact VASCULAR: DP pulses 1/4, PT pulses non palpable, skin temperature normal, mild edema of the left hallux and the right fifth digit. NEUROLOGIC: Gross sensation intact, protective sensation decreased, motor function intact Assessment and Plan - Assessment and Plan (Free Text) Assessment: 60 year old male with right foot 5th digit ulceration, healing lesion of the right hallux Plan: Patient seen and evaluated, d/w attending Dr. Garcia Patients bilateral lower extremities dressed with DSD to keep clean and dry Order for amlactin lotion for xerosis Will continue to monitor appearance of wound following vascular intervention, no surgical intervention planned at this time Podiatry will continue to follow
--- NOTE | 2016-08-03 13:37 | CP.PCM.PN ---
Subjective - Date & Time of Evaluation Date of Evaluation: 08/03/16 Time of Evaluation: 13:37 - Subjective Subjective: AFEBRILE. NO NEW COMPLAINTS Objective - Vital Signs/Intake and Output Vital Signs (last 24 hours): Temp Pulse Resp BP Pulse Ox 98.1 F 78 20 151/80 H 98 08/03/16 07:23 08/03/16 07:23 08/03/16 07:23 08/03/16 07:23 08/03/16 07:23 Intake and Output: 08/03/16 08/03/16 06:59 18:59 Intake Total 1000 Output Total 400 Balance 600 - Medications Medications: Current Medications Amlodipine Besylate (Norvasc) 10 mg PO DAILY [facility] Last Admin: 08/03/16 09:55 Dose: 10 mg Aspirin (Aspirin Chewable) 81 mg PO DAILY [facility] Last Admin: 08/03/16 09:55 Dose: 81 mg Atenolol (Tenormin) 12.5 mg PO DAILY [facility] Last Admin: 08/03/16 09:56 Dose: 12.5 mg Clopidogrel Bisulfate (Plavix) 75 mg PO DAILY [facility] Last Admin: 08/03/16 09:55 Dose: 75 mg Famotidine (Pepcid) 20 mg PO BID [facility] Last Admin: 08/03/16 09:55 Dose: 20 mg Furosemide (Lasix) 40 mg PO BID [facility] Last Admin: 08/03/16 09:55 Dose: Not Given Heparin Sodium (Porcine) (Heparin) 5,000 units SC Q12 [facility] Last Admin: 08/03/16 09:55 Dose: 5,000 units Hydralazine HCl (Apresoline) 25 mg PO Q8 [facility] Last Admin: 08/03/16 13:18 Dose: 25 mg Piperacillin Sod/Tazobactam (Sod 3.375 gm/ Sodium Chloride) 100 mls @ 200 mls/ hr IVPB Q8H [facility] Last Admin: 08/03/16 06:55 Dose: 200 mls/hr Sodium Chloride (Sodium Chloride 0.9%) 1,000 mls @ 100 mls/hr IV .Q10H [facility] Last Admin: 08/03/16 09:58 Dose: 100 mls/hr Insulin Detemir (Levemir) 60 unit SC HS [facility] Last Admin: 08/02/16 22:50 Dose: 60 unit Insulin Human Regular (Novolin R) 20 unit SC TIDCC [facility] Last Admin: 08/03/16 13:18 Dose: 20 unit Insulin Human Regular (Novolin R) 0 unit SC ACHS [facility] PRN Reason: Protocol Last Admin: 08/03/16 13:18 Dose: 2 unit Lactic Acid (Lac-Hydrin 12% Lotion (225 G)) 0 gm EXT DAILY [facility] Losartan Potassium (Cozaar) 50 mg PO DAILY [facility] Last Admin: 08/03/16 09:55 Dose: 50 mg - Labs Labs: 08/03/16 07:15 08/03/16 07:15 PT 11.0 SECONDS (9.7-12.2) 07/28/16 21:12 INR 1.0 07/28/16 21:12 APTT 34 SECONDS (21-34) 07/29/16 08:48 - Constitutional Appears: No Acute Distress - Head Exam Head Exam: NORMAL INSPECTION - Eye Exam Eye Exam: EOMI, PERRL. absent: Scleral icterus - ENT Exam ENT Exam: Normal Oropharynx - Neck Exam Neck Exam: Normal Inspection - Respiratory Exam Respiratory Exam: Clear to Ausculation Bilateral - Cardiovascular Exam Cardiovascular Exam: REGULAR RHYTHM, +S1, +S2 - GI/Abdominal Exam GI & Abdominal Exam: Soft, Normal Bowel Sounds - Extremities Exam Extremities Exam: absent: Calf Tenderness (RT 5TH DIGIT +VE EDEMA /DECREASED SENSATION, NO DRAINAGE.SLIGHT ERYTHEMA.) - Neurological Exam Neurological Exam: Awake, CN II-XII Intact, Oriented x3, Reflexes Normal - Psychiatric Exam Psychiatric exam: Normal Mood - Skin Skin Exam: Normal Color Assessment and Plan (1) Toe osteomyelitis, right Assessment & Plan: PT HAS RT.FOOT 5TH PHALNX OSTEOMYLITIS LFTS SLIGHTLY HIGH. LEUKOPENIA IMPROVED AFTER DC VANCOMYCIN. WILL DC IV ZOSYN IN VIW OF THROMBOCYTOPENIA-7TH DAY START IV CEFIPIME 1GM IV PB Q 8HRLY X 5 WKS. F/U RENAL FUNCTONS /CBC F/U LFTS.( PT HAS HX OF HEP C ). CASE DISCUSSED WITH MS ABRAHAM . [employer]PERINTEND[employer]SPORTATION. Status: Acute (2) Hypertension Status: Chronic (3) Thrombocytopenia Status: Acute (4) Diabetes mellitus, insulin dependent (IDDM), uncontrolled Status: Acute (5) Obesity (BMI 30-39.9) Status: Acute (6) Hepatitis C Assessment & Plan: PT TO F/U WITH GI -DR LYNN OPD FOR HEP C. PT INFORMED. Status: Acute
[2016-08-03] MEDS ORDERED: Cefepime IV 1 gm in Dextrose 1 GM/50 ML BAG IVPB SCH (14:00)
--- NOTE | 2016-08-03 14:31 | CP.PCM.PN ---
Subjective - Date & Time of Evaluation Date of Evaluation: 08/03/16 Time of Evaluation: 11:00 - Subjective Subjective: Pt seen today with Dr. Pereira, denies any complaints s/p aortofemoral angiogram POD #1 Objective - Vital Signs/Intake and Output Vital Signs (last 24 hours): Temp Pulse Resp BP Pulse Ox 98.1 F 78 20 151/80 H 98 08/03/16 07:23 08/03/16 07:23 08/03/16 07:23 08/03/16 07:23 08/03/16 07:23 Intake and Output: 08/03/16 08/03/16 06:59 18:59 Intake Total 1000 Output Total 400 Balance 600 - Medications Medications: Current Medications Amlodipine Besylate (Norvasc) 10 mg PO DAILY [facility] Last Admin: 08/03/16 09:55 Dose: 10 mg Aspirin (Aspirin Chewable) 81 mg PO DAILY [facility] Last Admin: 08/03/16 09:55 Dose: 81 mg Atenolol (Tenormin) 12.5 mg PO DAILY [facility] Last Admin: 08/03/16 09:56 Dose: 12.5 mg Clopidogrel Bisulfate (Plavix) 75 mg PO DAILY [facility] Last Admin: 08/03/16 09:55 Dose: 75 mg Famotidine (Pepcid) 20 mg PO BID [facility] Last Admin: 08/03/16 09:55 Dose: 20 mg Furosemide (Lasix) 40 mg PO BID [facility] Last Admin: 08/03/16 09:55 Dose: Not Given Heparin Sodium (Porcine) (Heparin) 5,000 units SC Q12 [facility] Last Admin: 08/03/16 09:55 Dose: 5,000 units Hydralazine HCl (Apresoline) 25 mg PO Q8 [facility] Last Admin: 08/03/16 13:18 Dose: 25 mg Sodium Chloride (Sodium Chloride 0.9%) 1,000 mls @ 100 mls/hr IV .Q10H [facility] Last Admin: 08/03/16 09:58 Dose: 100 mls/hr Cefepime HCl (Maxipime Iv 1 Gm Premix) 1 gm in 50 mls @ 100 mls/hr IVPB Q8H [facility] Last Admin: 08/03/16 14:30 Dose: 100 mls/hr Insulin Detemir (Levemir) 60 unit SC HS [facility] Last Admin: 08/02/16 22:50 Dose: 60 unit Insulin Human Regular (Novolin R) 20 unit SC TIDCC [facility] Last Admin: 08/03/16 13:18 Dose: 20 unit Insulin Human Regular (Novolin R) 0 unit SC ACHS [facility] PRN Reason: Protocol Last Admin: 08/03/16 13:18 Dose: 2 unit Lactic Acid (Lac-Hydrin 12% Lotion (225 G)) 0 gm EXT DAILY [facility] Losartan Potassium (Cozaar) 50 mg PO DAILY [facility] Last Admin: 08/03/16 09:55 Dose: 50 mg - Labs Labs: 08/03/16 07:15 08/03/16 07:15 PT 11.0 SECONDS (9.7-12.2) 07/28/16 21:12 INR 1.0 07/28/16 21:12 APTT 34 SECONDS (21-34) 07/29/16 08:48 Assessment and Plan - Assessment and Plan (Free Text) Assessment: A/P 60 yr old male admitted for OM/ PAD s/p aortofemoral angiogram with selective catherization of left femoral artery. balloon angioplasty to peroneal and anterior tibial on left POD#1 -D/W with Dr. Thompson , pt is clear for D/C from surgical standpoint and to follow up in office in 1 week D/W Dr. Garcia , cleared for discharge to [facility] today from podiatry stand point D/W Dr. Gamez , cleared for discharge to a [facility] Today for antibiotics for OM , continue cefipime x 5 more weeks Discharge plan discussed with patient
--- NOTE | 2016-08-03 15:34 | CP.PCM.PN ---
Subjective - Date & Time of Evaluation Date of Evaluation: 08/03/16 Time of Evaluation: 15:30 - Subjective Subjective: Surgery: Dr. Bernard Pt seen and examined. Resting comfortably in bed. No Complaints of pain. Clear for D/C from surgical standpoint. Objective - Vital Signs/Intake and Output Vital Signs (last 24 hours): Temp Pulse Resp BP Pulse Ox 98.1 F 78 20 151/80 H 98 08/03/16 07:23 08/03/16 07:23 08/03/16 07:23 08/03/16 07:23 08/03/16 07:23 Intake and Output: 08/03/16 08/03/16 06:59 18:59 Intake Total 1000 Output Total 400 Balance 600 - Medications Medications: Current Medications Amlodipine Besylate (Norvasc) 10 mg PO DAILY [facility] Last Admin: 08/03/16 09:55 Dose: 10 mg Aspirin (Aspirin Chewable) 81 mg PO DAILY [facility] Last Admin: 08/03/16 09:55 Dose: 81 mg Atenolol (Tenormin) 12.5 mg PO DAILY [facility] Last Admin: 08/03/16 09:56 Dose: 12.5 mg Clopidogrel Bisulfate (Plavix) 75 mg PO DAILY [facility] Last Admin: 08/03/16 09:55 Dose: 75 mg Famotidine (Pepcid) 20 mg PO BID [facility] Last Admin: 08/03/16 09:55 Dose: 20 mg Furosemide (Lasix) 40 mg PO BID [facility] Last Admin: 08/03/16 09:55 Dose: Not Given Heparin Sodium (Porcine) (Heparin) 5,000 units SC Q12 [facility] Last Admin: 08/03/16 09:55 Dose: 5,000 units Hydralazine HCl (Apresoline) 25 mg PO Q8 [facility] Last Admin: 08/03/16 13:18 Dose: 25 mg Sodium Chloride (Sodium Chloride 0.9%) 1,000 mls @ 100 mls/hr IV .Q10H [facility] Last Admin: 08/03/16 09:58 Dose: 100 mls/hr Cefepime HCl (Maxipime Iv 1 Gm Premix) 1 gm in 50 mls @ 100 mls/hr IVPB Q8H [facility] Last Admin: 08/03/16 14:30 Dose: 100 mls/hr Insulin Detemir (Levemir) 60 unit SC HS [facility] Last Admin: 08/02/16 22:50 Dose: 60 unit Insulin Human Regular (Novolin R) 20 unit SC TIDCC [facility] Last Admin: 08/03/16 13:18 Dose: 20 unit Insulin Human Regular (Novolin R) 0 unit SC ACHS [facility] PRN Reason: Protocol Last Admin: 08/03/16 13:18 Dose: 2 unit Lactic Acid (Lac-Hydrin 12% Lotion (225 G)) 0 gm EXT DAILY [facility] Losartan Potassium (Cozaar) 50 mg PO DAILY [facility] Last Admin: 08/03/16 09:55 Dose: 50 mg - Labs Labs: 08/03/16 07:15 08/03/16 07:15 PT 11.0 SECONDS (9.7-12.2) 07/28/16 21:12 INR 1.0 07/28/16 21:12 APTT 34 SECONDS (21-34) 07/29/16 08:48 - Constitutional Appears: Non-toxic, No Acute Distress - Head Exam Head Exam: ATRAUMATIC, NORMOCEPHALIC - Eye Exam Eye Exam: EOMI - ENT Exam ENT Exam: Mucous Membranes Moist - Neck Exam Neck Exam: Full ROM - Respiratory Exam Respiratory Exam: NORMAL BREATHING PATTERN. absent: Accessory Muscle Use, Respiratory Distress - GI/Abdominal Exam GI & Abdominal Exam: Soft. absent: Distended, Firm, Guarding, Rigid, Tenderness - Extremities Exam Extremities Exam: absent: Calf Tenderness, Pedal Edema Additional comments: R groin, dressing in place, C/D/I B/L LE, sensation and motor fxn intact, warm to touch - Neurological Exam Neurological Exam: Alert, Awake, Oriented x3 Assessment and Plan - Assessment and Plan (Free Text) Assessment: 60M w. PAD s/p aortofemoral angiogram with selective catherization of left femoral artery. balloon angioplasty to peroneal and anterior tibial on left POD #1 -pt is clear for D/C from surgical standpoint -to follow up in office in 1 week -d/w attending Deloris PGY2
[2016-08-03 16:27] VITALS: BP 122/67; PULSE 74; TEMP 98.4; O2SAT 96
--- NOTE | 2016-08-03 16:36 | PN ---
DATE: 08/03/2016 The patient denies chest pain or shortness of breath. PHYSICAL EXAMINATION: VITAL SIGNS: Blood pressure 151/80, heart rate 78, temperature 98.1, respirations 20. HEENT: Normocephalic. NECK: No JVD. CHEST: Clear. HEART: S1, S2 regular. EXTREMITIES: Trace leg edema. LABORATORIES: Today's hemoglobin and hematocrit 11.9 and 35.1, platelet count is 72,000. Today's SM A-7 is within normal limits except for glucose of 210. ASSESSMENT: 1. Right fifth toe osteomyelitis. 2. Status post peripheral angioplasty. 3. Ischemic EKG changes, even on the repeat one today in the inferolateral leads. 4. Hypertension and diabetes mellitus. RECOMMENDATIONS: Continue aspirin 81 mg once a day, Cozaar ag 50 mg once a day, subcutaneous heparin 5000 units twice a day, Lasix at 40 mg p.o. twice a day, Norvasc at 10 mg once a day and Plavix 75 m g once a day as well as atenolol at 12.5 mg once a day. If the patient develops chest pain, then inv asive cardiac workup should be considered. Jc San MD cc: [id number] TT: 08/03/2016 16:36:04 Confirmation # [id number] Dictation # [id number] en
--- NOTE | 2016-08-03 19:01 | PN ---
DATE: 08/03/2016 SUBJECTIVE: Today, the patient is alert and awake. Denied any shortness of breath or any chest pain . The patient is status post stent, of the popliteal and the peroneal artery. PHYSICAL EXAMINATION: GENERAL: The patient denied any pain to the lower extremities and denies any shortness of breath, no chest pain, no palpitation. VITAL SIGNS: The patient has a blood pressure if 122/67, pulse 74, respirations 20, temperature 98.4 . NECK: Supple. No JVD. LUNGS: Clear. HEART: Regular rate and rhythm. ABDOMEN: Soft and nontender, no palpable mass, but obese. EXTREMITIES: Palpable pulse, the dorsalis pulse is palpable, equally palpable and also the ____ puls e is also palpable and there is old deformity of the left ankle. LABORATORY DATA: The patient had tests done. His WBC ____, hemoglobin 11.9, hematocrit 35.1 and tanika telet is 72. Chemistry: The sodium 137, potassium 3.7. Chloride 104, bicarbonate 26, BUN 20, creat inine 1.2 and glucose 210, calcium 7.9. AST 84, ALT 114, alkaline phosphatase 73 and albumin 3.1, gl obulin ____. PLAN: We are going to continue the antibiotic therapy and we will consider transferring the patient with to rehab for IV antibiotic therapy. Lars Pereira MD cc: [id number] TT: 08/03/2016 19:01:12 Confirmation # [id number] Dictation # [id number] gay
--- NOTE | 2016-08-03 23:48 | DS ---
The patient is a 60-year-old male with history of diabetes, hypertension, neuropathy, peripheral vasc ular disease, Charcot joint. The patient was seen in my office because of swelling and wound on the l eft big toe and the right fifth toe. The patient had an MRI done and the MRI was positive for osteomy elitis of the big toe and the fifth toe. The patient was advised to go to the hospital for IV antibio tic therapy. The patient has taken about 2 to 2-1/2 weeks before deciding to come in, but the patien t had a consult and with Dr. Layne, endocrinology; and Dr. San, cardiology. The patient Dr. Garcia, podiatry . The patient had tests done. The angiogram has revealed moderate plaq ue of the common femoral artery, profunda femoral artery better but there is a moderate diffuse plaque throughout the SFA, which is patent. There is an area of moderate stenosis within the mid and distal SFA and estimated to be 40%. So patient had a consult with Dr. eBrnard and a stent was place d in the peroneal and also the femoral arteries. Now patient is doing well and we discussed with the patient the [facility] for IV antibiotic therapy. Lars Pereira MD cc: [id number] TT: 08/03/2016 23:47:38 ln
--- NOTE | 2016-08-04 07:08 | PN ---
DATE: 08/01/2016 HISTORY OF PRESENT ILLNESS: Today patient is alert and awake. Denies any shortness of breath, no ch est pain, no dizziness, no palpitation, complaining of some heaviness to the left foot and some numbn ess. PHYSICAL EXAMINATION: VITAL SIGNS: The patient has a blood pressure of 120/66, pulse 74, respirations 20, temperature 98.4 . HEENT: Head is normocephalic. NECK: Supple. No JVD. LUNGS: Clear. HEART: Regular rate and rhythm. No murmur. ABDOMEN: Soft, obese, nontender, no palpable mass. EXTREMITIES: There is swelling of the big toe of the left foot and also a dry ulcer to the fifth toe on the right foot and also there is a deformity for the left ankle and flat feet. LABORATORY DATA: The patient's blood tests showed that the WBC is 4.9, hemoglobin 13.3, hematocrit 3 8.3 and platelets are 85. Chemistry: Sodium 140, potassium 3.8, chloride 104, bicarb is 24, BUN 27, creatinine 1.2, glucose 96, calcium 8.5, AST is 100, ALT 108. Alkaline phosphatase is 90. Albumin i s 3.5. Coagulation: PT done on 07/28 is 11, INR is 1. The patient also had a test done, abdominal ang iography. The abdomen angiography revealed left foot ____ shows heavily calcified ____ evaluation th e medial and distal segment are unremarkable. Left ____ extremity calcified ____ evaluation. The __ __ is unremarkable. The left lower extremity CT angiogram shows common femoral artery ____ patent de spite moderate calcific plaque. There is diffuse moderate plaque throughout the SFA an area of moder ate to severe stenoses and distal SFA is estimated to be 80%. There is moderate calcified plaque on the popliteal artery, which is patent. The right lower extremity CT angiogram showed moderate plaque at the common femoral artery profunda, femoral artery, which are both patent. Moderate diffuse plaq ue throughout the SFA which is patent. There is an area of moderate stenosis with the mid and distal SFA and estimated to be 40%. The case was discussed with ____ this afternoon and the decision made to have patient have a sten t this evening. Discussed with nurse, Maureen Navas. The patient agrees for the intervention that s hould be done tomorrow. In the meantime, we are going to order PT, PTT and order tests for this bhavna ent. Lars Pereira MD cc: [id number] TT: 08/01/2016 21:40:58 Confirmation # [id number] Dictation # [id number] rn
--- NOTE | 2016-08-04 07:19 | VAS ---
DATE: 08/02/2016 PREOPERATIVE DIAGNOSIS: Ischemic ulcerations of both feet. PROCEDURES CARRIED OUT: Aortofemoral angiogram via right groin with selective catheterization of lef t femoral artery; balloon angioplasty of the anterior tibial and posterior tibial artery, left leg, u sing balloons varying from 2.5 to 3.5 mm in diameter; Perclose closure, right groin. PROCEDURE: The patient was given local anesthesia and the right femoral artery was punctured. Under fluoroscopic control, guidewire was advanced to the level of the renal arteries. Overlapping films were taken from this level down. OPERATIVE FINDINGS: The aorta and renal arteries were free of significant occlusive disease. Both c ommon iliac, internal iliac and external iliac arteries are free of significant occlusive disease. B oth common femoral arteries are widely patent. Both femoral arteries and the superficial femoral art fabian region were widely patent without any significant signs of stenosis. On the right leg, we were u nable to take initially detailed pictures below the knee due the patient's body habitus. Selective p ictures were taken on the left side with the catheter placed in the proximal superficial femoral miguel ángel ry, which showed that down to the level of the trifurcation the vessels were widely patent. In the l eft leg, the posterior tibial artery was completely occluded. It reconstituted with very small branc hes in the foot. The anterior tibial had a high grade stenosis of over 90% at its origin, and the pr oximal portion of the peroneal artery had a similar but longer stenosis in its proximal portion. On the right side, the anterior tibial artery was the only vessel going down to the foot and was widely patent. Subsequent to the performance of diagnostic arteriogram, a stiff-angled guidewire was advanced over t he aortic bifurcation and a 6-Thai sheath positioned in the midportion to distal portion of the sup erficial femoral artery. Using road mapping techniques and a chris wire technique of the anterior ti bial/peroneal artery region, we then placed an 0.014 wires here. We then ballooned the anterior tibi al first with a 2, then 3, and then with a 3.5 balloon. Soon after this, we also ballooned the peron eal artery on the left side. The final completion pictures were excellent and showed markedly improv ed flow into the foot. We then removed the long sheath and placed a 6-Thai sheath in the right aidee in. We then, using a variety of techniques, took similar pictures on the right side showing the abov e-mentioned findings. A Perclose was then deployed successfully in the right groin. PROCEDURES CARRIED OUT: Aortofemoral angiogram with selective catheterization of left femoral artery , balloon angioplasty of anterior tibial and posterior tibial artery and the popliteal artery on the left side using a 3.5 mm balloon. No intervention was undertaken on the right side. Brendon Bernard Jr., MD cc:Bk Garcia DPM; Lars Pereira MD 56 TT: 08/02/2016 20:36:32 Confirmation # [id number] Dictation # [id number] mn
[2016-08-04] MEDS ORDERED: Ammonium Lactate 12% Lotion (225 g) EXT SCH (10:00)
--- NOTE | 2016-08-04 17:10 | CARD ---
APPROVED REPORT EKG Measurement Heart [id number] <Conclusion> Normal sinus rhythm Minimal voltage criteria for LVH, may be normal variant T wave abnormality, consider inferolateral ischemia Prolonged QT Abnormal ECG
== END 2016-08-03 18:30 | DRG 982 ==
LOC: C.ER 18:31 → C.9E 21:20 → C.5T 23:35
PROVIDERS: ADMIT Specialist; ATTEND Specialist
PROC: 02HV33Z Insertion of Infusion Device into Superior Vena Cava, Percutaneous Approach (ICD-10-PCS; 2016-07-31)
PROC: 047S3ZZ Dilation of Left Posterior Tibial Artery, Percutaneous Approach (ICD-10-PCS; 2016-08-02)
PROC: 047Q3ZZ Dilation of Left Anterior Tibial Artery, Percutaneous Approach (ICD-10-PCS; principal; 2016-08-02 10:00)
DX: E10.69 Type 1 diabetes mellitus with other specified complication (principal); M86.171 Other acute osteomyelitis, right ankle and foot; M86.172 Other acute osteomyelitis, left ankle and foot; E10.610 Type 1 diabetes mellitus with diabetic neuropathic arthropathy; E10.621 Type 1 diabetes mellitus with foot ulcer; E10.21 Type 1 diabetes mellitus with diabetic nephropathy; D69.6 Thrombocytopenia, unspecified; L03.115 Cellulitis of right lower limb; L03.116 Cellulitis of left lower limb; E10.65 Type 1 diabetes mellitus with hyperglycemia; I10 Essential (primary) hypertension; I73.89 Other specified peripheral vascular diseases; R26.81 Unsteadiness on feet; Z87.891 Personal history of nicotine dependence; E78.5 Hyperlipidemia, unspecified; B96.89 Other specified bacterial agents as the cause of diseases classified elsewhere; E66.9 Obesity, unspecified; Z68.30 Body mass index [BMI] 30.0-30.9, adult; L97.519 Non-pressure chronic ulcer of other part of right foot with unspecified severity; B19.20 Unspecified viral hepatitis C without hepatic coma; D72.819 Decreased white blood cell count, unspecified